=== PATIENT | female | born 1950 | race Caucasian/White ===

== ENCOUNTER → 2018-12-29 11:02 | Outpatient (POV) | payer BC, SELFPAY | PROVIDERS: Visit Provider Dermatology | DX: Z00.00 Encounter for general adult medical examination without abnormal findings (principal) ==

== ENCOUNTER → 2019-01-20 08:42 | Outpatient (CLI) | payer OTHER, SELFPAY ==
[2019-01-20 14:08] LABS: Basophils % 0.3 % (0.1-2.0); Eosinophils # 1.5 K/mm3 (0.0-0.4); Eosinophils % 16.3 % (0.1-12.0); Hematocrit 38.8 % (37.0-47.0); Lymphocytes # 2.9 K/mm3 (0.7-4.5); Lymphocytes % 30.2 % (10-50); Mean Corpuscular HGB Conc 33.6 g/dL (31.8-35.4); Mean Corpuscular Hemoglobin 28.9 pg (27.0-31.2); Mean Corpuscular Volume 86.2 fl (81-99); Mean Platelet Volume 8.7 fl (7.4-10.4); Monocytes # 0.3 K/mm3 (0.1-1.0); Monocytes % 3.3 % (1.7-9.3); Neutrophils # 4.7 K/mm3 (1.8-7.8); Neutrophils % 49.9 % (37.0-80.0); Platelet Count 256 K/mm3 (142-424); Red Blood Count 4.51 M/mm3 (4.20-5.40); Red Cell Distribution Width 13.2 % (11.5-17.5); White Blood Count 9.5 K/mm3 (4.8-10.8)
[2019-01-20 14:31] LABS: Alanine Aminotransferase 27 U/L (12-78); Albumin Level 3.5 gm/dL (3.4-5.0); Albumin/Globulin Ratio 0.9 (1.1-1.8); Alkaline Phosphatase 132 U/L (46-116); Anion Gap 17.4 mEq/L (5-15); Aspartate Amino Transferase 12 U/L (15-37); Bilirubin,Total 0.5 mg/dL (0.2-1.0); Blood Urea Nitrogen 14 mg/dL (7-18); Calcium 9.2 mg/dL (8.5-10.1); Carbon Dioxide 26 mmol/L (21.0-32.0); Chloride 103 mmol/L (98-107); Chol/HDL Ratio 4.8 (1-3.5); Cholesterol 201 mg/dL (140-200); Creatinine,Serum 0.99 mg/dL (0.55-1.02); Estimated Glomerular Filt Rate 56 ml/min (>60); GFR (African American) 68 ML/MIN (>60); Globulin 3.8 gm/dl (1.3-3.2); Glucose 113 mg/dL (74-106); HDL Cholesterol 42 mg/dL (29-89); LDL Cholesterol 134 mg/dL (0-130); Magnesium 1.7 mg/dL (1.4-2.2); Potassium 4.4 mmoL/L (3.5-5.1); Sodium 142 mmol/L (136-145); T4 (Thyroxine) 8.9 ug/dl (4.7-13.3); Thyroid Stimulating Hormone 1.93 uIU/ml (0.358-3.740); Total Protein,Serum 7.3 gm/dL (6.4-8.2); Triglycerides 124 mg/dL (30-200); VLDL Cholesterol 25 mg/dL (0-40)
[2019-01-23 10:15] LABS: QuantiFERON-TB Gold Plus Negative (Negative)
== END ==
PROVIDERS: Clinical Nurse Specialist Critical Care Medicine; PCP Physician Assistant; Visit Provider Dermatology
DX: L40.0 Psoriasis vulgaris (principal); Z79.899 Other long term (current) drug therapy; I47.1 Supraventricular tachycardia; R00.1 Bradycardia, unspecified; R07.89 Other chest pain; I10 Essential (primary) hypertension
CPT/HCPCS: 36415; 80053; 80061; 83735; 84436; 84443; 85025; 86480

== ENCOUNTER → 2019-04-06 12:58 | Outpatient (POV) | payer OTHER, SELFPAY | PROVIDERS: Visit Provider Dermatology | DX: Z00.00 Encounter for general adult medical examination without abnormal findings (principal) ==

== ENCOUNTER → 2019-10-26 10:39 | Outpatient (POV) | payer OTHER, SELFPAY | PROVIDERS: Visit Provider Dermatology | DX: Z00.00 Encounter for general adult medical examination without abnormal findings (principal) ==

== ENCOUNTER → 2020-10-17 10:50 | Outpatient (POV) | payer OTHER, SELFPAY | PROVIDERS: Visit Provider Dermatology | DX: Z00.00 Encounter for general adult medical examination without abnormal findings (principal) ==

== ENCOUNTER → 2021-10-30 15:12 | Outpatient (POV) | payer OTHER, SELFPAY | PROVIDERS: Visit Provider Dermatology | DX: Z00.00 Encounter for general adult medical examination without abnormal findings (principal) ==

== ENCOUNTER → 2022-07-05 11:15 | Outpatient (CLI) | payer MEDICARE, SELFPAY ==
[2022-07-05 18:32] LABS: Basophils # 0.1 K/mm3 (0-0.2); Basophils % 1.1 % (0.1-2.0); Eosinophils # 0.4 K/mm3 (0.0-0.4); Eosinophils % 5.6 % (0.1-12.0); Hematocrit 37.2 % (37.0-47.0); Lymphocytes # 1.3 K/mm3 (0.7-4.5); Lymphocytes % 19.9 % (10-50); Mean Corpuscular HGB Conc 32.4 g/dL (31.8-35.4); Mean Corpuscular Hemoglobin 29.5 pg (27.0-31.2); Mean Corpuscular Volume 91.1 fl (81-99); Monocytes # 0.4 K/mm3 (0.1-1.0); Monocytes % 5.5 % (1.7-9.3); Neutrophils # 4.6 K/mm3 (1.8-7.8); Platelet Count 313 K/mm3 (142-424); Red Blood Count 4.08 M/mm3 (4.20-5.40); Red Cell Distribution Width 13.9 % (11.5-17.5); White Blood Count 6.8 K/mm3 (4.8-10.8)
[2022-07-05 19:08] LABS: Alanine Aminotransferase 26 U/L (12-78); Aspartate Amino Transferase 27 U/L (14-36); Bilirubin,Total 0.3 mg/dl (0.2-1.3); Blood Urea Nitrogen 17 mg/dl (7-17); Estimated Glomerular Filt Rate 71 ml/min (>60); GFR (African American) 86 ML/MIN (>60); Potassium 4.7 mmoL/L (3.5-5.1)
[2022-07-05 19:29] LABS: Albumin/Globulin Ratio 1.3 (1.1-1.8); Alkaline Phosphatase 135 U/L (38-126); Anion Gap 12.7 mEq/L (5-15); Carbon Dioxide 26 mmol/L (22.0-30.0); Chloride 105 mmol/L (98-107); Globulin 3.1 g/dL (1.3-3.2); Glucose 114 mg/dl (74-100); Sodium 139 mmol/L (136-145); Total Protein,Serum 7.1 g/dl (6.3-8.2)
[2022-07-05 19:34] LABS: C-Reactive Protein 9.5 mg/L (0-4)
[2022-07-05 21:37] LABS: Erythrocyte Sedimentation Rate 69 mm/hr (0-30)
== END ==
PROVIDERS: PCP Family Medicine; Visit Provider Family Medicine
DX: D89.9 Disorder involving the immune mechanism, unspecified (principal); L40.50 Arthropathic psoriasis, unspecified; R79.89 Other specified abnormal findings of blood chemistry
CPT/HCPCS: 80053; 85025; 85651; 86140

== ENCOUNTER → 2022-07-26 07:56 | Outpatient (CLI) | payer MEDICARE, SELFPAY ==
[2022-07-26 18:25] LABS: Basophils % 0.6 % (0.1-2.0); Eosinophils # 0.3 K/mm3 (0.0-0.4); Eosinophils % 5.8 % (0.1-12.0); Hematocrit 35.9 % (37.0-47.0); Hemoglobin 11.9 g/dL (12.2-16.2); Lymphocytes # 1.5 K/mm3 (0.7-4.5); Mean Corpuscular HGB Conc 33.1 g/dL (31.8-35.4); Mean Corpuscular Hemoglobin 29.2 pg (27.0-31.2); Mean Corpuscular Volume 88.2 fl (81-99); Mean Platelet Volume 8.9 fl (7.4-10.4); Monocytes # 0.3 K/mm3 (0.1-1.0); Monocytes % 5.5 % (1.7-9.3); Neutrophils # 3.3 K/mm3 (1.8-7.8); Platelet Count 281 K/mm3 (142-424); Red Blood Count 4.07 M/mm3 (4.20-5.40); Red Cell Distribution Width 13.9 % (11.5-17.5); White Blood Count 5.5 K/mm3 (4.8-10.8)
[2022-07-26 18:52] LABS: Anion Gap 11.7 mEq/L (5-15); Blood Urea Nitrogen 14 mg/dl (7-17); Carbon Dioxide 29 mmol/L (22.0-30.0); Chloride 102 mmol/L (98-107); Estimated Glomerular Filt Rate 49 ml/min (>60); GFR (African American) 59 ML/MIN (>60); Glucose 168 mg/dl (74-100); Potassium 4.7 mmoL/L (3.5-5.1); Sodium 138 mmol/L (136-145)
== END ==
PROVIDERS: PCP Family Medicine; Visit Provider Family Medicine
DX: D64.9 Anemia, unspecified (principal); R82.90 Unspecified abnormal findings in urine; N28.9 Disorder of kidney and ureter, unspecified; B96.29 Other Escherichia coli [E. coli] as the cause of diseases classified elsewhere
CPT/HCPCS: 80048; 85025; 87086; 87088; 87186

== ENCOUNTER → 2022-08-13 20:09 | Outpatient (CLI) | payer MEDICARE, SELFPAY | PROVIDERS: PCP Family Medicine; Visit Provider Family Medicine | DX: G47.33 Obstructive sleep apnea (adult) (pediatric) (principal); R09.02 Hypoxemia; G47.61 Periodic limb movement disorder | CPT/HCPCS: 95810 ==

== ENCOUNTER 2024-03-23 11:09 | Outpatient (POV) | payer MEDICARE, SELFPAY | END 2024-03-23 23:59 | disposition home or self-care (01) | LOC: SC 11:10 | PROVIDERS: PCP Family Medicine; Visit Provider Dermatology | DX: Z00.00 Encounter for general adult medical examination without abnormal findings (principal) ==

== ENCOUNTER 2025-03-15 11:00 | Outpatient (CLI) | payer MEDICARE, SELFPAY ==
[2025-03-15 17:49] LABS: Basophils # 0.1 K/mm3 (0-0.2); Basophils % 0.9 % (0.1-2.0); Eosinophils # 0.3 Kmm3 (0.0-0.4); Eosinophils % 3.9 % (0.1-12.0); Hematocrit 36.3 % (37.0-47.0); Hemoglobin 11.9 g/dL (12.2-16.2); Lymphocytes # 1.7 K/mm3 (0.7-4.5); Lymphocytes % 24.2 % (10-50); Mean Corpuscular HGB Conc 32.8 g/dL (31.8-35.4); Mean Corpuscular Hemoglobin 29.2 pg (27.0-31.2); Mean Corpuscular Volume 89.2 fl (81-99); Mean Platelet Volume 11.2 fl (7.4-10.4); Monocytes # 0.6 K/mm3 (0.1-1.0); Monocytes % 8.7 % (1.7-9.3); Neutrophils # 4.3 K/mm3 (1.8-7.8); Nucleated Red Blood Cells # 0 10^3/uL; Nucleated Red Blood Cells % 0 %; Platelet Count 286 K/mm3 (142-424); Red Blood Count 4.07 M/mm3 (4.20-5.40); Red Cell Distribution Width 13.2 % (11.5-17.5); Red Cell Distribution Width-SD 42.8 fL; White Blood Count 6.9 K/mm3 (4.8-10.8)
[2025-03-15 18:23] LABS: Erythrocyte Sedimentation Rate 63 mm/hr (0-30)
[2025-03-15 18:43] LABS: 25-OH Vitamin D, Total 36.9 ng/mL (30-100)
[2025-03-15 18:56] LABS: HIV Combo NEGATIVE (Negative)
[2025-03-15 19:36] LABS: Alanine Aminotransferase 59 U/L (12-78); Albumin Level 4.3 g/dl (3.5-5.0); Albumin/Globulin Ratio 1.4 (1.1-1.8); Alkaline Phosphatase 108 U/L (38-126); Aspartate Amino Transferase 55 U/L (14-36); Bilirubin,Total 0.7 mg/dl (0.2-1.3); Blood Urea Nitrogen 15 mg/dl (7-17); Calcium 9.7 mg/dl (8.4-10.2); Carbon Dioxide 25 mmol/L (22.0-30.0); Chloride 104 mmol/L (98-107); Chol/HDL Ratio 5.2 (1-3.5); Cholesterol 223 mg/dl (140-200); Estimated Glomerular Filt Rate 54 ml/min (>60); GFR (African American) 66 ML/MIN (>60); Globulin 3.1 g/dL (1.3-3.2); Glucose 123 mg/dl (74-100); HDL Cholesterol 43 mg/dl (40-60); Sodium 139 mmol/L (136-145); Total Protein,Serum 7.4 g/dl (6.3-8.2); Triglycerides 234 mg/dl (30-150); VLDL Cholesterol 47 mg/dL (0-40)
[2025-03-15 19:42] LABS: C-Reactive Protein 13.3 mg/L (0-4)
[2025-03-15 20:07] LABS: Thyroid Stimulating Hormone 2.36 uIU/mL (0.465-4.68)
[2025-03-15 20:39] LABS: Hepatitis C Ab Qual. W/ RFX NEGATIVE (Negative)
[2025-03-15 21:04] LABS: Direct LDL Cholesterol 125.32 mg/dL (100-129)
[2025-03-15 21:46] LABS: Vitamin B12 > 1000 pg/mL (239-931)
--- OUTSIDE RECORDS SUMMARY | 2025-03-16 13:42 | XMS_ITS | Data Portability ---
Author Organization [facility] GALINDO Ceballos [facility] CLOSED Address [address] [facility] [address] [place] [address] Care Team Providers Care Kapok Machine Operator Name Role Phone [facility] Primary Care Provider Assessment Encounter Date Assessment Date Assessment LastModified by Organization Details LastModified Time 08/15/2022 08/15/2022 Medical management of UTI with urine culture. Encouraged to stay well hydrated. Urine for culture and sensitivity. We discussed need for timed and double voids. Not available 08/15/2022 19:29:43 12/19/2022 12/19/2022 We discussed UTI prevention with adequate hydration and timed and double voids. We discussed options of suppression including cranberry tablets and/or d-mannose. [email or web address] Not available 12/21/2022 16:06:38 Plan of Treatment Reminders Order Date Submit Date Provider Last Modified By Organization Details Last Modified Time Details Appointments None recorded. Lab urinalysis panel, auto 2022 023 [email or web address] [facility] With [address], [place], [address], 16:06:39 urinalysis panel, auto 2021 022 [email or web address] 14 [facility] With [address], [place], [address], 08:42:59 culture, urine 2021 022 HELGA [facility], [address] [place], [address], 11:17:23 culture, urine 2021 [email or web address] [facility], [address] [place], [address], 16:25:23 Referral None recorded. Procedures None recorded. Surgeries None recorded. Imaging None recorded. Medication Orders None recorded. Patient TargetsNo targets recorded. Patient Instructions Encounter Date Encounter Id Patient Instructions Last Modified By Organization Details Last Modified Time 08/15/2022 [id number] learning about healthy weight Not available 08/16/2022 08:42:59 learning about high blood pressure [email or web address] Not available 08/16/2022 08:42:59 12/19/2022 [id number] healthy together [email or web address] Not availa ble 12/21/2022 16:06:39 Reason for Referral None Reported. Results Created Date Observation Date Name Description Value Unit Range Abnormal Flag Note LastModifiedBy Organization Detail LastModifiedTime 08/15/2008/15/2022 URINE CULTU RE results Sour e: CCUR Colle cted: 08/15 18:00 Site: Zaira tonia : 08/15 19:29 URINE CULTU RE FINAL 08/17 13:06 08/17 COLON Y COUNT : 10,00 0 - 100,0 00 CFU/M L Three or more isola davin; mixed skin silver . Not Available [facility] [place], [address], 08/17/2022 13:06:52 08/15/20 22 08/15/2022 urina lysis panel , auto Unknown Analyte Clean Catch Not Available [facility] [place] [facility] With [address], [place], [address], 08/15/2022 13:48:53 08/15/20 22 08/15/2022 urina lysis panel , auto Unknown Analyte Yellow Not Available [facility] With [address], [place], [address], 08/15/2022 13:48:53 08/15/20 22 08/15/2022 urina lysis panel , auto Unknown Analyte Clear Not Available [facility] With [address] [place], [address], 08/15/2022 13:48:53 08/15/20 22 08/15/2022 urina lysis panel , auto Unknown Analyte 1.020 Not Available [facility] With [address] [place], [address], 08/15/2022 13:48:53 08/15/20 22 08/15/2022 urina lysis panel , auto Unknown Analyte 1.003- 1.035 Not Available [facility] With [address], [address], 08/15/2022 13:48:53 08/15/20 22 08/15/2022 urina lysis panel , auto Unknown Analyte 5.0 Not Available [facility] With [address], [address], 08/15/2022 13:48:53 08/15/20 22 08/15/2022 urina lysis panel , auto Unknown Analyte 5.0-8. 0 Not Available [facility] With [address] [place], [address], 08/15/2022 13:48:53 08/15/20 22 08/15/2022 urina lysis panel , auto Unknown Analyte 500 Miguel/ul (++) Not Available [facility] With [address] [place], [address], 08/15/2022 13:48:53 08/15/20 22 08/15/2022 urina lysis panel , auto Unknown Analyte Negati ve Not Available [facility] With [address], [place], [address], 08/15/2022 13:48:53 08/15/20 22 08/15/2022 urina lysis panel , auto Unknown Analyte Negati ve Not Available [facility] With [address], [place], [address], 08/15/2022 13:48:53 08/15/20 22 08/15/2022 urina lysis panel , auto Unknown Analyte Negati ve Not Available [facility] With [address], [place], [address], 08/15/2022 13:48:53 08/15/20 22 08/15/2022 urina lysis panel , auto Unknown Analyte Negati ve Not Available [facility] With [address], [place], [address], 08/15/2022 13:48:53 08/15/20 22 08/15/2022 urina lysis panel , auto Unknown Analyte Negati ve Not Available [facility] With [address], [place], [address], 08/15/2022 13:48:53 08/15/20 22 08/15/2022 urina lysis panel , auto Unknown Analyte Normal Not Available [facility] With [address] [place], [address], 08/15/2022 13:48:53 08/15/20 22 08/15/2022 urina lysis panel , auto Unknown Analyte Normal Not Available [facility] With [address] [place], [place], [address], 08/15/2022 13:48:53 08/15/20 22 08/15/2022 urina lysis panel , auto Unknown Analyte Negati ve Not Available [facility] With [address] [place], [address], 08/15/2022 13:48:53 08/15/20 22 08/15/2022 urina lysis panel , auto Unknown Analyte Negati ve Not Available [facility] With [address] [place], [address], 08/15/2022 13:48:53 08/15/20 22 08/15/2022 urina lysis panel , auto Unknown Analyte Normal Not Available [facility] With [address] [place], [address], 08/15/2022 13:48:53 08/15/20 22 08/15/2022 urina lysis panel , auto Unknown Analyte Normal 1 mg/dl Not Available [facility] With [address] [place], [address], 08/15/2022 13:48:53 08/15/20 22 08/15/2022 urina lysis panel , auto Unknown Analyte Negati ve Not Available [facility] With [address] [place], [address], 08/15/2022 13:48:53 08/15/20 22 08/15/2022 urina lysis panel , auto Unknown Analyte Negati ve Not Available [facility] With [address] [place], [address], 08/15/2022 13:48:53 08/15/20 22 08/15/2022 urina lysis panel , auto Unknown Analyte Negati ve Not Available [facility] With [address] [place], [place], [address], 08/15/2022 13:48:53 08/15/20 22 08/15/2022 urina lysis panel , auto Unknown Analyte Negati ve Not Available [facility] With [address] [place], [address], 08/15/2022 13:48:53 12/19/19 23 12/19/2022 urina lysis panel , auto Unknown Analyte Clean Catch Not Available [facility] With [address] [place], [address], 12/19/2022 13:22:22 12/19/19 23 12/19/2022 urina lysis panel , auto Unknown Analyte Yellow Not Available [facility] With [address] [place], [address], 12/19/2022 13:22:22 12/19/19 23 12/19/2022 urina lysis panel , auto Unknown Analyte Clear Not Available [facility] With [address] [place], [address], 12/19/2022 13:22:22 12/19/19 23 12/19/2022 urina lysis panel , auto Unknown Analyte 1.000 Not Available [facility] With [address] [place], [address], 12/19/2022 13:22:22 12/19/19 23 12/19/2022 urina lysis panel , auto Unknown Analyte 1.003- 1.035 Not Available [facility] With [address] [place], [address], 12/19/2022 13:22:22 12/19/19 23 12/19/2022 urina lysis panel , auto Unknown Analyte 7.0 Not Available [facility] With [address] [place], [place], [address], 12/19/2022 13:22:22 12/19/19 23 12/19/2022 urina lysis panel , auto Unknown Analyte 5.0-8. 0 Not Available [facility] With [address] [place], [address], 12/19/2022 13:22:22 12/19/19 23 12/19/2022 urina lysis panel , auto Unknown Analyte 500 Miguel/ul (++) Not Available [facility] With [address] [place], [place], [address], 12/19/2022 13:22:22 12/19/19 23 12/19/2022 urina lysis panel , auto Unknown Analyte Negati ve Not Available [facility] With [address] [place], [place], [address], 12/19/2022 13:22:22 12/19/19 23 12/19/2022 urina lysis panel , auto Unknown Analyte Negati ve Not Available [facility] With [address] [place], [address], 12/19/2022 13:22:22 12/19/19 23 12/19/2022 urina lysis panel , auto Unknown Analyte Negati ve Not Available [facility] With [address] [place], [address], 12/19/2022 13:22:22 12/19/19 23 12/19/2022 urina lysis panel , auto Unknown Analyte Negati ve Not Available [facility] With [address] [place], [place], [address], 12/19/2022 13:22:22 12/19/19 23 12/19/2022 urina lysis panel , auto Unknown Analyte Negati ve Not Available [facility] With [address] [place], [address], 12/19/2022 13:22:22 12/19/19 23 12/19/2022 urina lysis panel , auto Unknown Analyte Normal Not Available [facility] With [address] [place], [address], 12/19/2022 13:22:22 12/19/19 23 12/19/2022 urina lysis panel , auto Unknown Analyte Normal Not Available [facility] With [address] [place], [address], 12/19/2022 13:22:22 12/19/19 23 12/19/2022 urina lysis panel , auto Unknown Analyte Negati ve Not Available [facility] With [address] [place], [address], 12/19/2022 13:22:22 12/19/19 23 12/19/2022 urina lysis panel , auto Unknown Analyte Negati ve Not Available [facility] With [address] [place], [address], 12/19/2022 13:22:22 12/19/19 23 12/19/2022 urina lysis panel , auto Unknown Analyte Normal Not Available [facility] With [address] [place], [address], 12/19/2022 13:22:22 12/19/19 23 12/19/2022 urina lysis panel , auto Unknown Analyte Normal 1 mg/dl Not Available [facility] With [address] [place], [address], 12/19/2022 13:22:22 12/19/19 23 12/19/2022 urina lysis panel , auto Unknown Analyte Negati ve Not Available [facility] With [address] [place], [address], 12/19/2022 13:22:22 12/19/19 23 12/19/2022 urina lysis panel , auto Unknown Analyte Negati ve Not Available [facility] With [address] [place], [address], 12/19/2022 13:22:22 12/19/19 23 12/19/2022 urina lysis panel , auto Unknown Analyte Negati ve Not Available [facility] With [address], [place], [address], 12/19/2022 13:22:22 12/19/19 23 12/19/2022 urina lysis panel , auto Unknown Analyte Negati ve Not Available [facility] With [address] [place], [address], 12/19/2022 13:22:22 Result Notes None recorded. Procedures Surgical History Date Name Laterality Status Provider Name and Address Organization Details Recorded Time Hysterectomy completed Murelene Anshu [facility] 08/15/2022 13:46:22 Cholecystectomy completed Murelene Ansh[facility] 08/15/2022 13:46:31 Bilateral mastectomy completed Murelene Ansh[facility] 08/15/2022 13:47:34 Imaging Results None recorded. Procedure Notes None recorded. Medical Equipment None Reported. Allergies Allergen ID Allergen Name Allergen Category Reaction Reaction Severity Criticality Documentation Date Start Date Code Code System Note Provider Name and Address Organization Details Recorded Time 704236 Product containin g penicilli n (product) medicatio n Not available Not available Not available 08/15/2022 67115 8001 [facility] Ema Brasher [facility] 13:42:15 568803 Substance with sulfonami de structure and antibacte rial mechanism of action (substanc e) medicatio n Not available Not available Not available 08/15/2022 19158 8003 SNOMED Ema Brasher [facility] 13:42:24 Medications Name Sig Start Date Stop Date Status Note LastModified by Organization Details LastModified Time anastrozole active Not Available Not A vailable Not Available calcium active Not Available Not Avail able Not Available carvedilol active Not Available Not Av ailable Not Available montelukast active Not Available Not A vailable Not Available losartan active Not Available Not Avai lable Not Available allopurinol active Not Available Not A vailable Not Available Cosentyx active Not Available Not Avai lable Not Available Vitals Date Recorded Body height Body mass index (BMI) Body weight Provider Name and Address Organization Details Last Updated DateTime 08/15/2022 177.8 cm 31.9 kg/m2 004027.51 g Ema Brasher [facility] 08/15/2022 13:41:55 Date Recorded Body height Body mass index (BMI) Body weight Provider Name and Address Organization Details Last Updated DateTime 12/19/2022 177.8 cm 31.9 kg/m2 766019.51 vangie [facility] 12/19/2022 13:21:43 Social History Question Answer Notes LastModified by Organizat ion Details LastModified Time Tobacco Smoking Status Never Smoker Ema Brasher [facility] 08/15/2022 13:46:13 What Was The Date Of Your Most Recent Tobacco Screening? 08/15/2022 [email or web address] Information not available 08/15/2022 Sex: Unknown Functional Status None recorded. Mental Status None recorded. Family History Relationship Description Onset Age of this Age Resolved Age Notes LastModified by Organization Details LastModified Time Father Malignant neoplasm of prostate dai Not available 2021 13:45:45 Mother Kidney stone dai Not availab le 08/15/2022 13:46:01 Medical History Condition Response Arthritis Y Hypertension Y Sleep Apnea Y Gynecological HistoryNo gynecological history recorded. Obstetrics History GPAL:G 0 P 0 0 0 0 Past Encounters Encounter ID Performer Location Encounter Start Date Encounter Closed Date Diagnosis/Indication Diagnosis SNOMED-CT Code Diagnosis ICD10 Code Diagnosis Note [id number] SINGH MCDANIEL MD [facility] [address] [address] 08/15/2022 13:22:25 08/16/2022 16:50:56 Urinary tract infectious disease 70319367 N39.0 Hypertensive disorder 38 310928 I10 [id number] SINGH MCDANIEL MD [facility] [address] [place] [address],[place] [address] 12/19/2022 13:21:07 12/22/2022 04:05:06 Recurrent urinary tract infection 426406287 N39.0 Health Concerns Section Related Observation LastModified by Organization Detai ls LastModified Time None Recorded Concern Status LastModified by Organization Details LastModified Time None Recorded Advance Directives Directive None Recorded Payers Encounter Date Sequence Insurance Name Policy Number Policy Franks Covered Member ID Franks Member ID Guarantor Name 08/15/2022 1 [place] Sue J Bode [id number] 1 Sue J Laurence 12/19/2022 1 [place] Sue J Laurence [id number] Sue J Laurence 12/19/2022 2 [employer] (MEDICARE SUPPLEMENT) [id number] Sue J Laurence [id number] Sue J Laurence Notes Date Note Type Note Provider Name and Address Organization Details Recorded Time 08/15/2022 text/html 72-year-old female in the office for my initial evaluation and for discussion of recurrent UTI. On 07/26/2022 had a E. coli UTI treated with Ciprofloxacin. No history of recurrent UTIs. History of breast carcinoma status post bilateral mastectomy. She states she does not drink much throughout the day. Encouraged to stay well hydrated. No hesitancy. She has some urgency. Daytime frequency 2-3 times. Nocturia once nightly. No gross hematuria. No dysuria. SINGH MCDANIEL MD [address] [place] [address], [address], [facility] 08/15/2022 19:29:54 12/19/2022 text/html 72-year-old female in the office for follow-up evaluation of recurrent urinary infections. No recent UTIs. She reports normal daytime frequency with nocturia 0 to once nightly. No gross hematuria or dysuria. SINGH MCDANIEL MD [address] [place] [address], [address], [facility] 12/21/2022 16:06:57 OBGyn Episode No OBEpisode recorded.
== END 2025-03-15 23:59 | disposition home or self-care (01) ==
LOC: LAB.DROPOF 03-16 13:41
PROVIDERS: PCP Nurse Practitioner Family; Visit Provider Nurse Practitioner Family
DX: L40.50 Arthropathic psoriasis, unspecified (principal); I10 Essential (primary) hypertension; I49.9 Cardiac arrhythmia, unspecified; N28.9 Disorder of kidney and ureter, unspecified; M10.9 Gout, unspecified; C50.919 Malignant neoplasm of unspecified site of unspecified female breast; Z11.59 Encounter for screening for other viral diseases; E11.69 Type 2 diabetes mellitus with other specified complication
CPT/HCPCS: 80053; 80061; 82306; 82607; 83036; 84443; 85025; 85651; 86140; 86803; 87389

== ENCOUNTER 2025-06-24 10:15 | Outpatient (CLI) | payer MEDICARE, SELFPAY ==
--- OUTSIDE RECORDS SUMMARY | 2025-04-28 11:00 | XMS_ITS | Encounter Summary ---
Author Organization Healthcare Address [address] [place] [address] Care Team Providers Care Supervisor Intermediates Name Role Phone Charan Gong MD Unavailable [phone] Mckay Jordan MD Primary Care Provider Tere Sierra Fritz MD Unavailable [phone] Reason for Visit * Consultation (Routine) - Closed Specialty Diagnoses / Procedures Referred By Contbhupendra t Referred To Contact Dentist / Pain Medicine Diagnoses Obstructive sleep apnea (adult) (pediatric) Katie Ware MD [address] [facility] [address] [place] [address] Phone: tel: fax: January Martinez, DD [address] [address] Phone: tel: fax: Referral ID Status Reason Start Date Expiration Date Visits Re quested Visits Authorized [id number] Closed 03/18/2025 09/17/2026 1 1 Encounter Details Date Type Department Care Team (Late st Contact Info) Description 04/28/2025 11:00 AM EDT [facility] Room E214 [address] [place] [address] January Martinez DDS [address] [address] Prosper Higuera Obstructive sleep apnea (Primary Dx) Social History Tobacco Use Types Packs/Day Years Used Date Smoking Tobacco: Never Passive Smoke Exposure: Yes Smokeless Tobacco: Never Alcohol Use Standard Drinks/Week Comments Yes 0 (1 standard drink = 0.6 oz pur e alcohol) PHQ-2 Answer Date Recorded Patient Health Questionnaire-2 Score 0 04/12/2025 Comments No Sex and Gender Information Value Date Recorded Sex Assigned at Not on file Legal Sex Female 7:28 PM EDT Gender Identity Not on file Sexual Orientation Not on file documented as of this encounter Last Filed Vital Signs Vital Sign Reading Time Taken Comments Blood Pressure 137/73 04/28/2025 11:12 AM EDT Pulse 68 04/28/2025 11:12 AM EDT Temperature 36.1 C (96.9 F) 04/28/2025 11:12 AM EDT Respiratory Rate - - Oxygen Saturation 97% 04/28/2025 11:12 AM EDT Inhaled Oxygen Concentration - - Weight 109 kg (240 lb 11.9 oz) 04/28/2025 11:12 AM EDT Height 177.8 cm (5' 10 ) 04/28/2025 11:12 AM EDT Body Mass Index 34.54 04/28/2025 11:12 AM EDT documented in this encounter Miscellaneous Notes * Progress Notes - Prosper Higuera - 04/28/2025 11:00 AM EDT Patient Katie Ware MD [address] [place] [address]. Initial evaluation of a 75 y.o. female referred referred for the evaluation for the management of obstructive sleep apnea with oral appliance therapy. HISTORY OF CHIEF COMPLAINT: Ms. Sue Dang completed a home sleep study revealing an JUAQUIN average: 44 and a minimum oxygen saturation: 76%. These findings were consistent with severe obstructive sleep apnea. Patient reported snoring (ESS = 0). Patient cannot tolerate CPAP well however is interested in the management with oral appliance therapy mostly for travel purposes. Past Medical History[1] Family History[2] Surgical History[3] Medications Ordered Prior to Encounter[4] Allergies[5] CLINICAL EXAMINATION: Visit Vitals BP 137/73 Pulse 68 Temp (!) 36.1 ??C (96.9 ??F) Ht 1.778 m (5' 10 ) Wt 109 kg (240 lb 11.9 oz) SpO2 97% BMI 34.54 kg/m?? Cervical exam: Head and neck movements were not painful or restricted. Muscle and joint palpation: No tenderness to palpation of the temporomandibular joints or cervical and masticatory muscles.. Range of movement: Max comfortable opening 41 mm, max opening 43 mm (no deviation), left excursive 11 mm, right excursive 11 mm, protrusive 7 mm, vertical overlap 2 mm, horizontal overlap 2 mm. Intracapsular interferences: No TMJ sounds or interferences noted. Intraoral examination: No lymphadenopathy noted. No swelling, masses or lesions noted. Bilateral linea alba. Mallampati Score: Class 4. Bilateral scalloped tongue. Posterior tooth relationship: Class I Bilateral. Dentition: Unremarkable. Periodontal screening: No mobile teeth. Occlusal examination: Shimstock showed occlusal contacts between all the teeth and their antagonists. Stable occlusion noted. . RADIOGRAPHIC INTERPRETATION: Ms. Sue Dang provided a panoramic image taken by her dentist. Well corticated condyles with no signs of resorption. Absence of teeth #1, 16, 17 and 32. No gross caries. Vidales is largely non-diagnostic due to being a digital photo of a printed piece of paper. ASSESSMENT: severe obstructive sleep apnea (untreated). CONTRIBUTING FACTORS: TREATMENT RECOMMENDATIONS: We believe that the patient is a good candidate for a mandibular advancement device to be used for the management of obstructive sleep apnea in addition to weight loss. Advantages and disadvantages of the mandibular advancement device were discussed with the patient. Prior authorization has been requested from the patient's medical insurance provider. Clinical and radiographic findings were discussed with the patient and the patient's questions wereanswered. The patient will return for digital impressions and a protrusive bite record once this is received. If the patient tolerates the appliance, we will slowly advance the mandible; once we are at what webelieve is an appropriate advancement, we will suggest that a second sleep study be completed to measure the effectiveness of the appliance. [1] Past Medical History: Diagnosis Date Breast cancer Essential (primary) hypertension HTN (hypertension) GERD (gastroesophageal reflux disease) Gout Psoriatic arthritis (CMS/HCC) [2] Family History Problem Relation Name Age of Onset Skin cancer Mother Prostate cancer Father [3] Past Surgical History: Procedure Laterality Date BREAST BIOPSY Left CATARACT EXTRACTION, BILATERAL SECTION, CLASSIC CHOLECYSTECTOMY N/A Cholecystectomy from [facility] MASTECTOMY COMPLETE / SIMPLE Left MASTECTOMY COMPLETE / SIMPLE W/ SENTINEL NODE BIOPSY Right PARTIAL HYSTERECTOMY [4] Current Outpatient Medications on File Prior to Visit Medication Sig Dispense Refill allopurinol (Zyloprim) 100 MG tablet amLODIPine (Norvasc) 5 MG tablet Calcium Carbonate-Vit D-Min (RA Calcium 600/Vit D/Minerals) 600-200 MG-UNIT tablet Take by mouth 2 (two) times a day. carvedilol (Coreg) 25 MG tablet cyanocobalamin (Vitamin B-12) 250 MCG tablet Take 1 tablet (250 mcg) by mouth 1 (one) time each day. losartan (Cozaar) 25 MG tablet Take 1 tablet (25 mg) by mouth 1 (one) time each day. montelukast (Singulair) 10 MG tablet Secukinumab (Cosentyx Sensoready Pen) 150 MG/ML solution auto-injector Inject 300 mg under the skinevery 28 (twenty-eight) days. UNABLE TO FIND Med Name: Juanchoeddy. No current facility-administered medications on file prior to visit. [5] Allergies Allergen Reactions Cephalexin Hives Clarithromycin Hives Sulfa Drugs Rash and Itching Wound Dressing Adhesive Itching and Rash Neosporin Original [Neomycin-Bacitracin Zn-Polymyx] Rash Penicillin G Unknown - Patient states they do not know rxn details Cosigned by January Martinez DDS at 04/28/2025 1:38 PM EDT Associated attestation - January Martinez DDS - 04/28/2025 1:38 PM EDT I saw and evaluated the patient with the log hauler, and performed lion portions of the history and examination. I discussed the findings and the plan with the log hauler and conveyed the information to the patient. I agree with the log hauler's findings and plan as documented in the log hauler's note. I also evaluated the radiograph brought by the patient and I agree with the radiographic interpretation as written in the log hauler's note. documented in this encounter Plan of Treatment Upcoming Encounters Date Type Department Care Team (Late st Contact Info) Description 06/30/2025 11:15 AM EDT Office Visit [facility]facial Pain Clinic Orofacial Pain [facility] Room E214 [address] [place] [address] January Martinez, [facility] [address] [phone] Kika Gregorio 08/11/2025 10:30 AM EDT Office Visit [facility]facial Pain Clinic Orofacial Pain [facility] Room E214 [address] [place] [address] January Martinez, [facility] [address] [phone] Madhu Durham 03/28/2026 3:00 PM EDT Ovarian Cancer Screening [facility] [address] [facility] [place] [phone] 04/13/2026 1:00 PM EDT Office Visit [facility] [address] [facility], 2nd [place] [phone] April Loera, PA [address] [place] [address] Scheduled Orders Name Type Priority Associated Diagnoses Orde r Schedule CO ORAL DEVICE/APPLIANCE CUSFAB- IN PROCESS Dental Routine 1 Occurrences starting 04/28/2025 documented as of this encounter Visit Diagnoses Diagnosis Obstructive sleep apnea- Primary Obstructive sleep apnea (adult) (pediatric) documented in this encounter Additional Health Concerns Assessment Noted Time A fall risk assessment has been complete d for the patient 04/12/2025 9:35 AM EDT A Body Mass Index follow-up plan has been documented for the patient 04/28/2025 1:39 PM EDT documented as of this encounter Care Teams Supervisor Intermediates Relationship Specialty Start Date End Date Mckay Jordan MD [id number] [place] [address] PCP - General Family Medicine 10/01/22 Charan Gong MD [address] [phone] Consulting Physician Radiation Oncology 12/04/21 Sierra Molina MD [address] [phone] Consulting Physician Hematology and Oncology 04/06/24 documented as of this encounter
[2025-06-24 16:51] LABS: Hematocrit 35.2 % (37.0-47.0); Hemoglobin 11.2 g/dL (12.2-16.2); Immature Granulocytes % 0.3 %; Mean Corpuscular HGB Conc 31.8 g/dL (31.8-35.4); Mean Corpuscular Hemoglobin 28.9 pg (27.0-31.2); Mean Corpuscular Volume 90.7 fl (81-99); Nucleated Red Blood Cells % 0 %; Platelet Count 247 K/mm3 (142-424); Red Blood Count 3.88 M/mm3 (4.20-5.40); Red Cell Distribution Width-SD 43.6 fL; White Blood Count 7.1 K/mm3 (4.8-10.8)
[2025-06-24 18:59] LABS: Alanine Aminotransferase 43 U/L (12-78); Albumin Level 4.3 g/dl (3.5-5.0); Albumin/Globulin Ratio 1.7 (1.1-1.8); Alkaline Phosphatase 130 U/L (38-126); Anion Gap 12.5 mEq/L (5-15); Aspartate Amino Transferase 46 U/L (14-36); Bilirubin,Total 0.7 mg/dl (0.2-1.3); Blood Urea Nitrogen 16 mg/dl (7-17); Calcium 10.2 mg/dl (8.4-10.2); Carbon Dioxide 27 mmol/L (22.0-30.0); Chloride 102 mmol/L (98-107); Cholesterol 135 mg/dl (140-200); Creatinine,Serum 0.90 mg/dl (0.52-1.04); Estimated Glomerular Filt Rate 61 ml/min (>60); GFR (African American) 74 ML/MIN (>60); Globulin 2.6 g/dL (1.3-3.2); Glucose 157 mg/dl (74-100); HDL Cholesterol 39 mg/dl (40-60); Potassium 4.5 mmoL/L (3.5-5.1); Sodium 137 mmol/L (136-145); Total Protein,Serum 6.9 g/dl (6.3-8.2); Triglycerides 196 mg/dl (30-150)
--- OUTSIDE RECORDS SUMMARY | 2025-06-27 10:20 | XMS_ITS ---
Author Organization [facility] Address [address] [place] [address] Care Team Providers Care Blood Bank Manager Name Role Phone Mckay Jordan MD Primary Care Provider [phone] Rheumatology - External Fill Status:Enrolled (Active) Start date:09/29/2024 Enrollment date:09/29/2024 Enrollment reason:Identified as being on target medication Current support & services provided:Benefits Investigation, External Pharmacy Dispensing Linked medications:Risankizumab-rzaa (Active) Linked problems:Psoriasis (Active), Psoriatic arthritis of multiple joints (Active) Overview Patient will be mailed a PAP application for Jake on 10.26.24 Continued Care and Services Coordination
--- OUTSIDE RECORDS SUMMARY | 2025-06-27 10:20 | XMS_ITS | Encounter Summary ---
Author Organization [employer] ([place], [place], [place], [place]) Address [address] [place] [address] Care Team Providers Care Chaplaincy Name Role Phone Mckay Jordan MD Primary Care Provider [phone] Reason for Visit * Reason Comments Medication Refill Encounter Details Date Type Department Care Team (Late st Contact Info) Description 09/15/2024 Refill [facility] - [place] [address] [place] [address] Juliann Trent PA-C [address] [address] Hypertension, unspecified type Social History Tobacco Use Types Packs/Day Years Used Date Smoking Tobacco: Never Smokeless Tobacco: Never Alcohol Use Standard Drinks/Week Comments Never 0 (1 standard drink = 0.6 oz pur e alcohol) caffeine use Food Insecurity Answer Date Recorded Food run out past 12 months Not on file 11/17 Food did not last past 12 months Not on file 12/05/2023 Employment Answer Date Recorded Help finding and keeping a job Not on file 0 12/05/2023 Family and Community Support Answer Venkata e Recorded Help with Day to Day Activities Not on file 12/05/2023 Feeling Lonely or Isolated Not on file 12/05 Educational Attainment Answer Date Chicho rded Speak language other than Turkish at home Not on file 12/05/2023 Want help with school or training Not on file 12/05/2023 Substance Use Answer Date Recorded Used prescription meds for non-medical reasons N ot on file 12/05/2023 Used illegal drugs past 12 months Not on file 12/05/2023 Comments No Sex and Gender Information Value Date Recorded Sex Assigned at Not on file Legal Sex Female 3:50 PM CDT Gender Identity Not on file Sexual Orientation Not on file documented as of this encounter Plan of Treatment Not on file documented as of this encounter Visit Diagnoses Diagnosis Hypertension, unspecified type documented in this encounter Care Teams Chaplaincy Relationship Specialty Start Date End Date Mckay Jordan MD [address] [place], [place] [id number] PCP - General Family Medicine 01/15/23 documented as of this encounter
--- OUTSIDE RECORDS SUMMARY | 2025-06-27 10:20 | XMS_ITS | Encounter Summary ---
Author Organization Healthcare Address [address] [place] [address] Care Team Providers Care As400 Consultant Name Role Phone Charan Gong MD Unavailable [phone] Mckay Jordan MD Primary Care Provider Tere Sierra Fritz MD Unavailable [phone] Encounter Details Date Type Department Care Team (Latest Contact Info) Description 04/28/2025 Travel Social History Tobacco Use Types Packs/Day Years [...] as of this encounter Plan of Treatment Upcoming Encounters Date Type Department Care Team (Late st Contact Info) Description 06/30/2025 11:15 AM EDT Office Visit [facility]facial Pain Clinic O[facility]facial Pain Clinic [facility] Room E2 [address] [place] [address] January Martinez, DDS [address] [address] Kika Gregorio 08/11/2025 10:30 AM EDT Office Visit [facility] Room E214 [address] [place] [address] January Martinez, DDS [address] [facility] [address] [place] [address] Madhu Durham 03/28/2026 3:00 PM EDT Ovarian Cancer Screening [facility] [address] [facility] [place] [address] 04/13/2026 1:00 PM EDT Office Visit [facility] [address] [facility], 2nd [place] [address] April Loera, RAEANN [address] [facility] [address] [place] [address] documented as of this encounter Visit Diagnoses Not on filedocumented in this encounter Additional Health Concerns Assessment Noted Time A fall risk assessment has been complete d for the patient 04/12/2025 9:35 AM EDT A Body Mass Index follow-up plan has been documented for the patient 04/28/2025 1:39 PM EDT documented as of this encounter Care Teams As400 Consultant Relationship Specialty Start Date End Date Mckay Jordan MD [address] [facility] [address] [place] [address] PCP - General Family Medicine 10/01/22 Charan Gong MD [address] [facility] [address] [place] [address] Consulting Physician Radiation Oncology 12/04/21 Sierra Molina MD [address] [facility] Guillermina Roberts[facility]on [facility] [address] [place] [address] Consulting Physician Hematology and Oncology 04/06/24 documented as of this encounter
--- OUTSIDE RECORDS SUMMARY | 2025-06-27 10:20 | XMS_ITS | Encounter Summary ---
Author Organization Healthcare Address [address] [place] [address] Care Team Providers Care Frame Stripper And Crusher Name Role Phone Charan Gong MD Unavailable [phone] Mckay Jordan MD Primary Care Provider Tere Sierra Fritz MD Unavailable [phone] Reason for Referral * Consultation (Routine) - Closed Specialty Diagnoses / Procedures Referred By Contbhupendra mccarthy Referred To Contact Dentist / Pain Medicine Diagnoses Obstructive sleep apnea (adult) (pediatric) Katie Ware MD [address] [place] [address] Phone: tel: fax: January Martinez, DDS [address] [facility] [address] [place] [address] Phone: tel: fax: Referral ID Status Reason Start Date Expiration Date Visits Re quested Visits Authorized [id number] Closed 03/18/2025 09/17/2026 1 1 Encounter Details Date Type Department Care Team (Late st Contact Info) Description 03/18/2025 Community [facility] [address] [place] [address] Katie Ware MD [address] [place] [address] Obstructive sleep apnea (adult) (pediatric) (Primary Dx) Social History Tobacco Use Types Packs/Day Years Used Date Smoking Tobacco: Never Passive Smoke Exposure: Yes Smokeless Tobacco: Never Alcohol Use Standard Drinks/Week Comments Yes 0 (1 standard drink = 0.6 oz pur e alcohol) PHQ-2 Answer Date Recorded Patient Health Questionnaire-2 Score 0 04/07/2024 Comments No Sex and Gender Information Value Date Recorded Sex Assigned at Not on file Legal Sex Female 7:28 PM EDT Gender Identity Not on file Sexual Orientation Not on file documented as of this encounter Plan of Treatment Upcoming Encounters Date Type Department Care Team (Late st Contact Info) Description 06/30/2025 11:15 AM EDT Office Visit [facility] O[facility]facial Pain Clinic Orofacial Pain Clinic [facility] Room E214 [address] [place] [address] January Martinez, DDS [address] [address] Kika Gregorio 08/11/2025 10:30 AM EDT Office Visit [facility] Clinic O[facility]facial Pain Clinic [facility] Room E214 [address] [place] [address] January Martinez, S [address] [address] Madhu Durham 03/28/2026 3:00 PM EDT Ovarian Cancer Screening [facility] [address] [facility] [place] [phone] 04/13/2026 1:00 PM EDT Office Visit [facility] Breast Care Center [address] [facility], 2nd [place] [address] April Loera, RAEANN [address] [place] [address] Scheduled Referrals Name Type Priority Associated Diagnoses Order Schedule Ambulatory Referral to Orofacial Pain Outpatient Referral Routine Obstructive sleep apnea (adult) (pediatric) Expected: 03/18/2025 (Approximate), Expires: 09/18/2026 documented as of this encounter Visit Diagnoses Diagnosis Obstructive sleep apnea (adult) (pediatric)- Primary documented in this encounter Additional Health Concerns Assessment Noted Time A fall risk assessment has been complete d for the patient 10/11/2024 9:45 AM EST documented as of this encounter Care Teams Frame Stripper And Crusher Relationship Specialty Start Date End Date Mckay Jordan MD [address] [place] [address] PCP - General Family Medicine 10/01/22 Charan Gong MD [address] [place] [address] Consulting Physician Radiation Oncology 12/04/21 Sierra Molina MD [address] [facility] Guillerm[address] [place] [facility] [address] [place] [address] Consulting Physician Hematology and Oncology 04/06/24 documented as of this encounter
--- OUTSIDE RECORDS SUMMARY | 2025-06-27 10:20 | XMS_ITS | Clinical Summary ---
Author Organization [facility] Address [address] [place] [address] Care Team Providers Care Faculty Instructor Name Role Phone Mckay Jordan MD Primary Care Provider [phone]- [phone] Allergies Active Allergy Reactions Criticality Noted Date Comments Penicillins Rash Low 04/12/2024 Sulfa Antibiotics Rash Low 04/12/2024 Medications multivitamin with minerals (PRESERVISION AREDS PO) Take 1 tablet by mouth Daily. PreserVision AREDS 14,320 unit-226 mg-200 Active allopurinol (ZYLOPRIM) 100 MG tablet Take 1 tablet by mouth Daily. Active anastrozole (ARIMIDEX) 1 MG tablet Take 1 tablet by mouth Daily. Active hydrocortisone 2.5 % ointment Apply 1 Application topically to the appropriate area as directed 2 (Two) Times a Day As Needed. Active montelukast (SINGULAIR) 10 MG tablet Active losartan (COZAAR) 25 MG tablet Take 1 tablet by mouth Daily. Active carvedilol (COREG) 25 MG tablet Take 1 tablet by mouth 2 (Two) Times a Day With Meals. Active amLODIPine (NORVASC) 5 MG tablet Take 1 tablet by mouth Daily. Active cyanocobalamin (VITAMIN B-12) 250 MCG tablet Take 1 tablet by mouth Daily. Active Risankizumab-rz aa (Skyrizi Pen) 150 MG/ML solution auto-injectorIn dications:Psori atic arthritis of multiple joints Inject 1 Pen under the skin into the appropriate area as directed Every 12 (Twelve) Weeks. 1 mL 3 5 Active Active Problems Problem Noted Date Diagnosed Date Psoriasis 04/13/2024 Assessment & Plan (04/13/2024 1:56 PM EDT): dermatology dr Susan torre Minimal psoriasis on Cosentyx High risk medication use 04/13/2024 Assessment & Plan (04/13/2024 1:56 PM EDT): Cosentyx QTB negative 10/13/23 No signs of toxicity. Continue labs for monitoring We discussed biologic agents at length. Risks and alternatives were discussed at length and the option of no treatment was also given. We discussed risks including but not limited to infections which can be unusual, severe, and deadly. When possible, these agents should be stopped immediately if infections occur. Unusual infection such as TB and fungal infections can occur. There may be an increased risk of lymphoma with these agents. Other risks can include a multiple sclerosis-like illness and worsening of heart failure. Infusion or injection reactions which can be deadly have been reported. Studies on have not been done so should be avoided while on these agents. Reactivation of a deadly brain virus and hepatitis viruses have been reported. Worsening of COPD has been seen with orencia. Elevated lipids, elevation in liver functions, and dangerous changes in blood counts have been seen with certain agents. Regular monitoring will be required. Immunosuppression due to drug therapy 04/13/2024 Assessment & Plan (04/13/2024 1:56 PM EDT): Well-tolerated and effective Renal insufficiency 04/13/2024 Assessment & Plan (10/19/2024 3:53 PM EST): Assessment & Plan (04/13/2024 1:56 PM EDT): Has seen neurology but not Nephrology GFR in the 50s on labs 10/13/2023 Avoid further NSAIDs Follow-up with PCP for elevated blood pressure Psoriatic arthritis of multiple joints Assessment & Plan (04/13/2024 1:56 PM EDT): daughter Mirela with one son Philip; 3 grandchildren, 1 great grandchild, vacation [place] + hx dactylitis toe + psoriasis current: Cosentyx (2016) 300mg subq q 4wk([employer] assistance; start derm dr Susan Torre) prior MTX 2009 prior humira 7.14 biweekly prior enbrel 10; 11.13 hx histoplasmosis; prior otezla 3.16. low dz activity. Swollen joint count 0. Tender joint count 0. Good prognosis. improved on Cosentyx 300mg subq every 4 weeks through [employer] assistance Continue Cosentyx. [employer] application renewed September 2023 Medication well tolerated. No side effects. She stopped meloxicam due to renal insufficiency Avoid meloxicam and further NSAIDs for now with GFR in the 50s Recommend follow-up with PCP for hypertension as her blood pressure is elevated today 156/84 Labs ordered today for monitoring as below Follow-up in 6 months Immunizations Immunization Administration Dates Next Due COVID-19 (UNSPECIFIED) 02/02/2021,12/11/2020 Family History Medical History Relation Name Comments Arthritis Father Relation Name Status Comments Father Social History Tobacco Use Types Packs/Day Years Used Date Smoking Tobacco: Never Smokeless Tobacco: Never Tobacco Cessation:Counseling Given: Not Answered Alcohol Use Standard Drinks/Week Comments Never 0 (1 standard drink = 0.6 oz pur e alcohol) Comments Unknown Sex and Gender Information Value Date Recorded Sex Assigned at Not on file Legal Sex Female 12:25 PM EDT Gender Identity Not on file Sexual Orientation Not on file Last Filed Vital Signs Vital Sign Reading Time Taken Comments Blood Pressure 142/62 02/17/2025 1:52 PM EDT Pulse 86 02/17/2025 1:52 PM EDT Temperature 36.1 C (97 F) 02/17/2025 1:52 PM EDT Respiratory Rate - - Oxygen Saturation - - Inhaled Oxygen Concentration - - Weight 109 kg (240 lb 4.8 oz) 02/17/2025 1:52 P M EDT Height 177.8 cm (5' 10 ) 02/17/2025 1:52 PM EDT Body Mass Index 34.48 02/17/2025 1:52 PM EDT Plan of Treatment Upcoming Encounters Date Type Department Care Team (Late st Contact Info) Description 08/23/2025 11:30 AM EDT Office Visit [facility] RHEUMATOLOGY [address] [place] [address] Oh Martinez MD [address] [facility] [address] [place] [id number] Health Maintenance Due Date Last Done Comments Pneumococcal Vaccine 50+ (1 of 2 - PCV) 02/11/1971 TDAP/TD VACCINES (1 - Tdap) 02/11/1971 ZOSTER VACCINE (1 of 2) 02/11/1971 COLOGUARD 02/11/1997 COLON CANCER SCREENING 5 YEA R SIGMOIDOSCOPY 02/11/1997 COLONOSCOPY 02/11/1997 COLORECTAL CANCER SCREENING 02/11/1997 CT COLONOGRAPHY 02/11/1997 FECAL OCCULT BLOOD TEST 02/11/1997 FIT Testing (1 year) 02/11/1997 MAMMOGRAM 01/04/2022 01/04/2020, 12/18, 12/22/2018, Additional history exists ANNUAL WELLNESS VISIT 04/12/2024 HEPATITIS C SCREENING 04/12/2024 COVID-19 Vaccine (2023-2 5 season) 2024 02/02/2021, 01/11/2021, 12/11/2020 INFLUENZA VACCINE 08/17/2025 09/09/2018 DXA SCAN 10/07/2025 10/07/2023, 10/07/2023 Insurance MEDICARE ADVANTAGE PPO Care Teams Faculty Instructor Relationship Specialty Start Date End Date Mckay Jordan MD [address] [place] [address] [place] [address] PCP - General Family Medicine 04/13/24
--- OUTSIDE RECORDS SUMMARY | 2025-06-27 10:20 | XMS_ITS | Encounter Summary ---
Author Organization [employer] ([place], [place], [place], [place]) Address [address] [place] [address] Care Team Providers Care District Plant Superintendent Name Role Phone Mckay Jordan MD Primary Care Provider [phone]- [phone] Reason for Visit * Reason Comments Medication Refill Encounter Details Date Type Department Care Team (Late st Contact Info) Description 11/28/2024 Refill [facility] Cardiology [address] [address] Ramiro [place] MD [address] [place] [address] Social History Tobacco Use Types Packs/Day Years [...] Date Chicho rded Speak language other than Bengali at home Not on file 12/05/2023 Want [...] Diagnoses Not on filedocumented in this encounter Care Teams District Plant Superintendent Relationship Specialty Start Date End Date Mckay Jordan MD [address] [place], [place] [id number] PCP - General Family Medicine 01/15/23 documented as of this encounter
--- OUTSIDE RECORDS SUMMARY | 2025-06-27 10:20 | XMS_ITS | Encounter Summary ---
Author Organization [facility] Address [address] [place] [address] Care Team Providers Care Silo Worker Name Role Phone Mckay Jordan MD Primary Care Provider [phone]- [phone] Reason for Visit * Reason Onset Date Comments MED REFILL NEEDED 09/28/2024 Encounter Details Date Type Department Care Team (Late st Contact Info) Description 09/28/2024 Telephone [facility] RHEUMATOLOGY [address] [address] Oh Martinez MD [address] [address] MED REFILL NEEDED Social History Tobacco Use Types Packs/Day Years [...] on file documented as of this encounter Miscellaneous Notes * Telephone Encounter - Tere Barrios RegSched Rep - 09/28/2024 4:08 PM EST Caller: Sue Dang Relationship to patient: Self Best call back number: [phone] Patient is needing: PT CALLED AND SAID THE Secukinumab (Cosentyx UnoReady) 300 MG/2ML solution auto-injector NEEDS TO BE SENT TO [facility], IT WAS SUPPOSED TO BE APPROVED THROUGH THE END OF THE YEAR BUT IT'S ALREADY UP. documented in this encounter Plan of Treatment Upcoming Encounters Date Type Department Care Team (Late st Contact Info) Description 08/23/2025 11:30 AM EDT Office Visit [facility] RHEUMATOLOGY [address] [address] Oh Martinez MD [address] [address] documented as of this encounter Visit Diagnoses Not on filedocumented in this encounter Care Teams Silo Worker Relationship Specialty Start Date End Date Mckay Jordan MD [address] [place] [address] [place] [address] PCP - General Family Medicine 04/13/24 documented as of this encounter
--- OUTSIDE RECORDS SUMMARY | 2025-06-27 10:20 | XMS_ITS | Encounter Summary ---
Author Organization [facility] Address [address] [place] [address] Care Team Providers Care Floral Manager Name Role Phone Mckay Jordan MD Primary Care Provider [phone]- [phone] Encounter Details Date Type Department Care Team (Late Contact Info) Description 03/16/2025 Results Follow-Up [facility] RHEUMATOLOGY [address] [address] Oh Martinez MD [address] [place] [address] [phone] Social History Tobacco Use Types Packs/Day Years [...] Encounters Date Type Department Care Team (Late Contact Info) Description 08/23/2025 11:30 AM EDT Office Visit [facility] RHEUMATOLOGY [address] [address] Oh Martinez MD [address] [place] [phone] documented as of this encounter Visit Diagnoses Not on filedocumented in this encounter Care Teams Floral Manager Relationship Specialty Start Date End Date Mckay Jordan MD [address] [place] [address] [place] [address] PCP - General Family Medicine 04/13/24 documented as of this encounter
--- OUTSIDE RECORDS SUMMARY | 2025-06-27 10:20 | XMS_ITS | Encounter Summary ---
Author Organization [facility] Address [address] [place] [address] Care Team Providers Care Nail Setter Name Role Phone Charan Gong MD Unavailable [phone] Mckay Jordan MD Primary Care Provider Tere Sierra Fritz MD Unavailable [phone] Encounter Details Date Type Department Care Team (Late st Contact Info) Description 04/28/2025 [facility]phone [facility] Room E214 [address] [place] [address] Anna Calderon [address] [place] [address] Social History Tobacco Use Types Packs/Day Years [...] encounter Miscellaneous Notes * Telephone Encounter - Anna Calderon - 04/28/2025 12:11 PM EDT Financial counseling done at scheduling PA approved pt will owe $500 lab fee documented in this encounter Plan of Treatment Upcoming Encounters Date Type Department Care Team (Late st Contact Info) Description 06/30/2025 11:15 AM EDT Office Visit [facility]facial [facility] Clinic [facility] Room E214 [address] [place] [address] January Martinez, DDS [address] [address] Kika Gregorio 08/11/2025 10:30 AM EDT Office Visit [facility] Room E214 [address] [place] [address] January Martinez, [facility] [address] [phone] Madhu Durham 03/28/2026 3:00 PM EDT Ovarian Cancer Screening [facility] [address] [place] [phone] 04/13/2026 1:00 PM EDT Office Visit [facility] [address] [facility], 2nd [place] [address] April Loera PA [address] [place] [address] documented as of this encounter Visit Diagnoses Not on filedocumented in this encounter Additional Health Concerns Assessment Noted Time A fall risk assessment has been complete d for the patient 04/12/2025 9:35 AM EDT A Body Mass Index follow-up plan has been documented for the patient 04/28/2025 1:39 PM EDT documented as of this encounter Care Teams Nail Setter Relationship Specialty Start Date End Date Mckay Jordan MD [id number] [place] [address] PCP - General Family Medicine 10/01/22 Charan Gong MD [address] [facility] [address] [place] [phone] Consulting Physician Radiation Oncology 12/04/21 Sierra Molina MD [address] [facility] [address] [place] [phone] Consulting Physician Hematology and Oncology 04/06/24 documented as of this encounter
--- OUTSIDE RECORDS SUMMARY | 2025-06-27 10:20 | XMS_ITS | Referral Summary ---
Author Organization [employer] ([place], [place], [place], [place]) Address [address] [place] [address] Care Team Providers Care Sheep Herder Name Role Phone Mckay Jordan MD Primary Care Provider [phone]- [phone] Allergies Active Allergy Reactions Criticality Noted Date Comments Cephalexin Hives High 01/28/2020 Clarithromycin Hives High 01/28/2020 Penicillins Rash Low 01/18/2020 Other reaction(s): Unknown Sulfa (Sulfonamide Antibiotics) Rash,Itching Medium 01/18/2020 Medications allopurinoL (ZYLOPRIM) 100 MG tablet Take 1 tablet (100 mg total) by mouth in the morning. 01/07/2023 Active anastrozole (ARIMIDEX) 1 mg tablet Take 1 tablet (1 mg total) by mouth in the morning. 12/16/2022 Active carvediloL (COREG) 25 MG tablet Take 1 tablet (25 mg total) by mouth in the morning and 1 tablet (25 mg total) before bedtime. 01/07/2023 Active cholecalciferol, vitamin D3, 50 mcg (2,000 unit) Cap Take 1 capsule (2,000 Units total) by mouth. Active clobetasoL (TEMOVATE) 0.05 % cream Apply topically. 10/22/2022 Active montelukast (SINGULAIR) 10 mg tablet Take 1 tablet (10 mg total) by mouth in the morning. 01/07/2023 Active GaviLyte-G 236-22.74-6.74 -5.86 gram solution Take by mouth. 10/23/2022 Active calcium carbonate-vit D3-min (Calcium 600 + Minerals) 600 mg calcium- 200 unit Tab Take by mouth daily. Active secukinumab (Cosentyx Pen) 150 mg/mL PnIj Inject 300 mg subcutaneous ly. Active cyanocobalamin, vitamin B-12, 250 MCG tablet Take 1 tablet (250 mcg total) by mouth. Active amLODIPine (NORVASC) 5 MG tabletIndication s:Hypertension, unspecified type TAKE 1 TABLET EVERY DAY 90 tablet 3 11/24/2023 Active losartan (COZAAR) 25 MG tablet TAKE 1 TABLET EVERY MORNING 90 tablet 3 02/09/2024 Active Active Problems Problem Noted Date Diagnosed Date Sleep apnea Shortness of breath Palpitations Hypertension Gout Bradycardia Atrial tachycardia Allergies Social History Tobacco Use Types Packs/Day Years [...] Date Chicho rded Speak language other than Polish at home Not on file 12/05/2023 Want [...] Sign Reading Time Taken Comments Blood Pressure 120/58 04/10/2023 1:11 PM EDT Pulse 68 04/10/2023 1:11 PM EDT Temperature 37 C (98.6 F) 01/15/2023 12:37 PM EST Respiratory Rate 16 04/10/2023 1:11 PM EDT Oxygen Saturation 96% 04/10/2023 1:11 PM EDT Inhaled Oxygen Concentration - - Weight 108.9 kg (240 lb) 04/10/2023 1:11 PM EDT Height 177.8 cm (5' 10 ) 04/10/2023 1:11 PM EDT Body Mass Index 34.44 04/10/2023 1:11 PM EDT Plan of Treatment Not on file Insurance [employer] MEDICARE PPO Care Teams Sheep Herder Relationship Specialty Start Date End Date Mckay Jordan MD [address] [place] [id number] PCP - General Family Medicine 01/15/23
--- OUTSIDE RECORDS SUMMARY | 2025-06-27 10:20 | XMS_ITS | Clinical Summary ---
Author Organization [facility] Address [address] [place] [address] Care Team Providers Care Parking Garage Manager Name Role Phone Charan Gong MD Unavailable [phone] Mckay Jordan MD Primary Care Provider Tere Sierra Fritz MD Unavailable [phone] Allergies Active Allergy Reactions Criticality Noted Date Comments Cephalexin Hives High 01/28/2020 Clarithromycin Hives High 01/28/2020 Neomycin-Bacitracin Zn-Polymyx Rash Low 01/18/2020 Penicillin G Unknown - Patient st ates they do not know rxn details Low 01/18/2020 Sulfa Drugs Rash,Itching Medium 01/18/2020 Wound Dressing Adhesive Itching,Rash Medium 01/28/2020 Medications allopurinol (Zyloprim) 100 MG tablet 05/29/2021 Active carvedilol (Coreg) 25 MG tablet 05/29/2021 Active montelukast (Singulair) 10 MG tablet 05/29/2021 Active Secukinumab (Cosentyx Sensoready Pen) 150 MG/ML solution auto-injector Inject 300 mg under the skin every 28 (twenty-eig ht) days. Active cyanocobalamin (Vitamin B-12) 250 MCG tablet Take 1 tablet (250 mcg) by mouth 1 (one) time each day. Active losartan (Cozaar) 25 MG tablet Take 1 tablet (25 mg) by mouth 1 (one) time each day. Active amLODIPine (Norvasc) 5 MG tablet 01/24/2023 Active Calcium Carbonate-Vit D-Min (RA Calcium 600/Vit D/Minerals) 600-200 MG-UNIT tablet Take by mouth 2 (two) times a day. Active UNABLE TO FIND Med Name: [place]. Active Active Problems Problem Noted Date Diagnosed Date Encounter for monitoring adjuvant hormonal thera py 10/11/2024 Invasive ductal carcinoma of breast 01/28/2020 Cancer Staging:Pathologic stage from 01/25/2020:Stage IIB(pT2, pN1a, cM0, G2, ER+, [place]-, HER2-, Oncotype DX score: 21) - Unsigned Overview (04/02/2022): Malignant neoplasm of unspecified site of unspecified female breast Encounters Date Type Department Care Team Description 04/28/2025 11:00 AM EDT Office Visit [facility] Room [address] [address] January Martinez, Prosper Esposito Obstructive sleep apnea (Primary Dx) 04/28/2025 Telephone [facility] Room [facility] [place] [address] Anna Calderon 04/28/2025 Travel 04/12/2025 9:30 AM EDT Office Visit [address] [place] [address] April Loera PA Infiltrating ductal carcinoma of right breast (Primary Dx); Encounter for follow-up surveillance of breast cancer 04/12/2025 Travel 04/05/2025 Travel from Last 3 Months Family History Medical History Relation Name Comments Prostate cancer Father Skin cancer Mother Relation Name Status Comments Father Mother Social History Tobacco Use Types Packs/Day Years Used Date Smoking Tobacco: Never Passive Smoke Exposure: Yes Smokeless Tobacco: Never Tobacco Cessation:Counseling Given: Not Answered Alcohol Use Standard Drinks/Week Comments Yes 0 [...] F) 04/28/2025 11:12 AM EDT Respiratory Rate 16 04/12/2025 9:27 AM EDT Oxygen Saturation 97% 04/28/2025 11:12 AM EDT Inhaled Oxygen Concentration - - Weight 109 kg (240 lb 11.9 oz) 04/28/2025 11:12 AM EDT Height 177.8 cm (5' 10 ) 04/28/2025 11:12 AM EDT Body Mass Index 34.54 04/28/2025 11:12 AM EDT Plan of Treatment Upcoming Encounters Date Type Department Care Team (Late st Contact Info) Description 06/30/2025 11:15 AM EDT Office Visit [facility] Room E2 [address] [place] [address] January Martinez, [facility] [address] [address] Kika Gregorio 08/11/2025 10:30 AM EDT Office Visit [facility] Room E214 [address] [place] [address] January Martinez [facility] [address] [address] Madhu Durham 03/28/2026 3:00 PM EDT Ovarian Cancer Screening [facility] [address] [facility] [place] [phone] 04/13/2026 1:00 PM EDT Office Visit [facility] [address] [facility], 2nd [place] [address] April Loera, RAEANN [address] [address] Health Maintenance Due Date Last Done Comments Dental Oral Exam 1950 Dental Prophylaxis 1950 Dental X-Ray: Bitewings 1950 Dental X-Ray: Full Mouth 1950 [facility]-Hepatitis C Screening 1950 [facility]-Medicare Annual Wellness (AWV) 1950 [facility]-/Child/Adol SDOH Screenings 1950 [facility]- SDOH Screenings 02/11/1970 [facility]-Adult SDOH Screenings 02/11/1970 [facility]-DTaP,Tdap,and Td Vaccine s (1 - Tdap) 02/11/1971 [facility]-Pneumococcal Vaccine: 50 + Years (1 of 2 - PCV) 02/11/1971 [facility]-Zoster Vaccines (1 of 2) 02/11/1971 CT Colonography 02/11/1997 Colonoscopy 02/11/1997 FIT-DNA 02/11/1997 FIT 02/11/1997 FOBT 02/11/1997 Sigmoidoscopy 02/11/1997 [facility]-Colorectal Cancer Screening 02/11/1997 [facility]-RSV Vaccine: 60+ Years o r (1 - Risk 60-74 years 1-dose series) 2012 [id number] Vaccine (4 - season) 2024 02/02/2021, 01/11/2021, 12/11/2020 [facility]-Influenza Vaccine (#1) 2025 09/09/2018 [facility]-Bone Density Scan 10/07/2025 10/07/2023 [facility]-Depression Screening 04/12/2026 04/12/2025 [facility]-Obesity Intervention Completed 04/28/2025 HPV Vaccines Aged Out No longer eligi ble based on patient's age to complete this topic [facility]-HIB Vaccines Aged Out No longer e ligible based on patient's age to complete this topic [facility]-Hepatitis A Vaccines Aged Out No longer eligible based on patient's age to complete this topic [facility]-IPV Vaccines Aged Out No longer e ligible based on patient's age to complete this topic [facility]-Rotavirus Vaccines Aged Out No lo nger eligible based on patient's age to complete this topic Procedures Procedure Name Priority Date/Time Associated Diagnosis Comments DEXA BONE DENSITY Routine 10/07/2023 9:4 0 AM EST Infiltrating ductal carcinoma of right breast (CMS/HCC) from Last 3 Months or Most Recently Relevant to Health Maintenance Results * Dexa Bone Density (10/07/2023 9:40 AM EST) Anatomical Region Laterality Modality L-spine Radiographic Rand ging Narrative 10/12/2023 6:14 PM EST [facility] - Nephrology, Bone & Mineral Metabolism [address] [place] [address] DXA Bone Densitometry Report: [DAY/DATE] BMD test performed using the [employer] iDUjogo DXA System (analysis version: 14.10) manufactured by [employer]. CLINICAL INFORMATION: PATIENT NAME: Sue Dang PATIENT AGE: 73 y.o. LEGAL SEX: female RADIOGRAPHIC VIEWS: Sites scanned: AP Spine, HIP Right , and HIP Left COMPARISON STUDY: 2019. FINDINGS: Based on WHO criteria (post-menopausal female) the diagnosis is Normal based on lowest T score. The BMD is stable compared to previous results. TREATMENT RECOMMENDATIONS: Treatment decisions should be based on clinical indications. Suggest general measures to optimize calcium and vitamin D status, fall prevention measures and reduce fracture risk. Sierra Molina MD IMG DXA PROCEDURES Final Resu lt from Last 3 Months or Most Recently Relevant to Health Maintenance Insurance [facility] MEDICARE Care Teams Parking Garage Manager Relationship Specialty Start Date End Date Mckay Jordan MD [address] [address] PCP - General Family Medicine 10/01/22 Charan Gong MD [address] [address] Consulting Physician Radiation Oncology 12/04/21 Sierra Molina MD 800 [facility] Guillermina Hoover [address] [phone] Consulting Physician Hematology and Oncology 04/06/24
--- OUTSIDE RECORDS SUMMARY | 2025-06-27 10:20 | XMS_ITS | Clinical Summary ---
Author Organization [employer] ([place], [place], [place], [place]) Address [address] [place] [address] Care Team Providers Care Duster Tender Name Role Phone Mckay Jordan MD Primary Care Provider [phone] Allergies Active Allergy Reactions Criticality Noted Date [...] Palpitations Hypertension Gout Bradycardia Atrial tachycardia Allergies Family History Medical History Relation Name Comments Heart attack Brother Heart disease Brother Prostate cancer Father Heart disease Mother Heart disease Other Relation Name Status Comments Brother Father Mother Other Social History Tobacco Use Types Packs/Day Years [...] Date Chicho rded Speak language other than Estonian at home Not on file 12/05/2023 Want [...] 04/10/2023 1:11 PM EDT Plan of Treatment Health Maintenance Due Date Last Done Comments Medicare Initial AWV G0438 CT Colonography 1950 Colonoscopy 1950 Colorectal Cancer Screening 1950 DXA SCAN 1950 FOBT/FIT 1950 Fit-DNA (Cologuard) 1950 Sigmoidoscopy 1950 Depression Screening (12+) 1964 Hepatitis C Screening 02/11/1970 DTAP/TDAP/TD VACCINES (1 - Tdap) 02/11/1971 Breast Cancer Screening 1992 Pneumococcal 50+ years (1 of 1 - PCV) 02/11/2002 Shingles Vaccine (Zoster) (1 of 2) 02/11/2002 Tobacco Cessation Counseling and Screening (12+) 04/10/2024 04/10/2023 COVID-19 VACCINE (3 - 2023- season) 2024, 01/11/2021 Falls Risk Screening 11/17/2024 Influenza Vaccine (#1) 2025 Respiratory Syncytial Virus (RSV) Adult or (1 - 1-dose 75+ series) 02/11/2027 Insurance [facility] MEDICARE PPO Care Teams Duster Tender Relationship Specialty Start Date End Date Mckay Jordan MD [address] [place] [address] PCP - General Family Medicine 01/15/23
== END 2025-06-24 23:59 | disposition home or self-care (01) ==
LOC: LAB.DROPOF 06-27 10:16
PROVIDERS: PCP Nurse Practitioner Family; Visit Provider Nurse Practitioner Family
DX: E11.69 Type 2 diabetes mellitus with other specified complication (principal); E66.9 Obesity, unspecified; I10 Essential (primary) hypertension; E78.5 Hyperlipidemia, unspecified
CPT/HCPCS: 80053; 80061; 82043; 82570; 85025

== ENCOUNTER 2025-09-30 09:40 | Outpatient (CLI) | payer MEDICARE, SELFPAY ==
--- OUTSIDE RECORDS SUMMARY | 2025-08-11 09:30 | XMS_ITS | Encounter Summary ---
Author Organization Healthcare Address [address] [place] [address] Care Team Providers Care Emergency Department Aide Name Role Phone Charan Gong MD Unavailable [phone] Mckay Jordan MD Primary Care Provider Tere Sierra Fritz MD Unavailable [phone] Encounter Details Date Type Department Care Team (Late st Contact Info) Description 08/11/2025 10:30 AM EDT [facility] Room E2 [address] [place] [address] January Martinez, S [address] [address] Madhu Durham Obstructive sleep apnea (Primary Dx) Social History [...] Sign Reading Time Taken Comments Blood Pressure 147/73 08/11/2025 10:19 AM EDT Pulse 69 08/11/2025 10:19 AM EDT Temperature 35.8 C (96.5 F) 08/11/2025 10:19 AM EDT Respiratory Rate - - Oxygen Saturation 94% 08/11/2025 10:19 AM EDT Inhaled Oxygen Concentration - - Weight 110 kg (243 lb 2.7 oz) 08/11/2025 10:19 A M EDT Height 177.8 cm (5' 10 ) 08/11/2025 10:19 AM EDT Body Mass Index 34.89 08/11/2025 10:19 AM EDT documented in this encounter Miscellaneous Notes * Progress Notes - Madhu Durham - 08/11/2025 10:30 AM EDT Patient returned to the clinic the delivery of Panthera classic appliance. Examination: Vitals: 08/11/25 1019 BP: (!) 147/73 Pulse: 69 Temp: (!) 35.8 ??C (96.5 ??F) SpO2: 94% Procedure: Panthera classic appliance was inserted. It was tried for 10 minutes, no pain or discomfort was reported. Arm size #30. AM mineral technologist registration was taken to control the bite. It was tried and felt comfortable. Patient was instructed on how to use it. Panthera classic appliance was delivered along with the AM mineral technologist and written instructions. Assessment: severe obstructive sleep apnea. Plan: Instructions of nighttime use and care were given to the patient. Proof of delivery and Medicare standard requirements was signed by the patient, and a paper copy was provided to the patient. See attachments. Patient to return to [facility] for follow up appointment. Cosigned by January Martinez DDS at 08/11/2025 12:00 PM EDT Associated attestation - January Martinez DDS - 08/11/2025 12:00 PM EDT I saw and evaluated the patient, I discussed the case with the manager student services and agree with the notes as documented below. documented in this encounter Plan of Treatment Upcoming Encounters Date Type Department Care Team (Late st Contact Info) Description 10/06/2025 11:15 AM EST Office Visit [place] [facility] Room E214 [address] [place] [address] January Martinez, DDS [address] [facility] [address] [place] [address] 03/28/2026 3:00 PM EDT Ovarian Cancer Screening [place] [facility] [address] [facility] [place] [address] 04/21/2026 1:00 PM EDT Office Visit [facility] [address] [facility] [place] [address] April Loera PA [address] [facility] [address] [place] [address] documented as of this encounter Visit Diagnoses Diagnosis Obstructive sleep apnea- Primary Obstructive sleep apnea (adult) (pediatric) documented in this encounter Additional Health Concerns Assessment Noted Time A fall risk assessment has been complete d for the patient 04/12/2025 9:35 AM EDT A Body Mass Index follow-up plan has been documented for the patient 08/11/2025 12:01 PM EDT documented as of this encounter Care Teams Emergency Department Aide Relationship Specialty Start Date End Date Mckay Jordan MD [address] [facility] [address] [place] [address] PCP - General Family Medicine 10/01/22 Charan Gong MD [address] [facility] [address] [place] [address] Consulting Physician Radiation Oncology 12/04/21 Sierra Molina MD [address] [facility] Guillermina Robertsrickson [facility] Andrea [address] [place] [phone] Consulting Physician Hematology and Oncology 04/06/24 documented as of this encounter
--- OUTSIDE RECORDS SUMMARY | 2025-08-23 10:30 | XMS_ITS | Encounter Summary ---
Author Organization [facility] Address [address] [place] [address] Care Team Providers Care Fountain Vending Mechanic Name Role Phone Mckay Jordan MD Primary Care Provider [phone] Reason for Visit * Reason Comments Psoriatic Arthritis Encounter Details Date Type Department Care Team (Late st Contact Info) Description 08/23/2025 11:30 AM EDT Office Visit [facility] [address] [address] Oh Martinez MD [address] [address] Psoriatic arthritis of multiple joints (Primary Dx); High risk medication use Social History Tobacco Use Types Packs/Day Years [...] Sign Reading Time Taken Comments Blood Pressure 140/68 08/23/2025 11:21 AM EDT Pulse 73 08/23/2025 11:21 AM EDT Temperature 36.2 C (97.1 F) 08/23/2025 11:21 AM EDT Respiratory Rate - - Oxygen Saturation - - Inhaled Oxygen Concentration - - Weight 109 kg (241 lb) 08/23/2025 11:21 AM EDT Height 177.8 cm (5' 10 ) 08/23/2025 11:21 AM EDT Body Mass Index 34.58 08/23/2025 11:21 AM EDT documented in this encounter Patient Instructions * Attachments The following attachments cannot be sent through Care Everywhere. * Risankizumab Injection (Maltese) documented in this encounter Progress Notes * Oh Martinez MD - 08/23/2025 11:30 AM EDT Images from the original note were not included. Office Follow Up Date: 08/23/2025 Patient Name: Sue Dang Date of : 1950 Referring Physician: No ref. provider found Chief Complaint: Chief Complaint Patient presents with Psoriatic Arthritis History of Present Illness: Sue Dang is a 75 y.o. female who is here today for follow up on psoriatic arthritis and psoriasis. She started on Skyrizi through [employer] assistance program January 2025. Well-tolerated. Psoriasis is overall improving and presently minimal on the Skyrizi. No side effect. No infection. No present swollen or painful joints She did have a flareup in the interim left hand MCP joint and left foot. This resolved with steroids through her PCP History of Present Illness Subjective Review of Systems: Review of Systems Constitutional: Negative for chills, fatigue, fever and unexpected weight loss. HENT: Negative for mouth sores, sinus pressure and sore throat. Eyes: Negative for pain and redness. Respiratory: Negative for cough and shortness of breath. Cardiovascular: Negative for chest pain. Gastrointestinal: Negative for abdominal pain, blood in stool, diarrhea, nausea, vomiting and GERD. Endocrine: Negative for polydipsia and polyuria. Genitourinary: Negative for dysuria, genital sores and hematuria. Musculoskeletal: Negative for arthralgias, back pain, joint swelling, myalgias, neck pain and neck stiffness. Skin: Negative for rash and bruise. Neurological: Negative for seizures, weakness, numbness and memory problem. Hematological: Negative for adenopathy. Does not bruise/bleed easily. Psychiatric/Behavioral: Negative for depressed mood. The patient is not nervous/anxious. Past Medical History: Past Medical History: Diagnosis Date Angioedema of lips FRrom MALGORZATA inhibitor 2013 Cancer of breast High risk medication use Hx of degenerative disc disease Psoriasis Psoriatic arthritis RLS (restless legs syndrome) Sleep apnea Past Surgical History: Past Surgical History: Procedure Laterality Date CATARACT EXTRACTION Bilateral left 03/27/18 right 03/30/18 MASTECTOMY Family History: Family History Problem Relation Age of Onset Arthritis Father Social History: Social History Socioeconomic History Marital status: Single Tobacco Use Smoking status: Never Smokeless tobacco: Never Vaping Use Vaping status: Never Used Substance and Sexual Activity Alcohol use: Never Drug use: Never Medications: Current Outpatient Medications: allopurinol (ZYLOPRIM) 100 MG tablet, Take 1 tablet by mouth Daily., Disp: , Rfl: amLODIPine (NORVASC) 5 MG tablet, Take 1 tablet by mouth Daily., Disp: , Rfl: carvedilol (COREG) 25 MG tablet, Take 1 tablet by mouth 2 (Two) Times a Day With Meals., Disp: , Rfl: cyanocobalamin (VITAMIN B-12) 250 MCG tablet, Take 1 tablet by mouth Daily., Disp: , Rfl: ferrous sulfate 324 (65 Fe) MG tablet delayed-release EC tablet, Take 1 tablet by mouth Daily With Breakfast., Disp: , Rfl: losartan (COZAAR) 25 MG tablet, Take 1 tablet by mouth Daily., Disp: , Rfl: metFORMIN ER (GLUCOPHAGE-XR) 500 MG 24 hr tablet, Take 1 tablet by mouth Daily With Breakfast., Disp: , Rfl: montelukast (SINGULAIR) 10 MG tablet, , Disp: , Rfl: multivitamin with minerals (PRESERVISION AREDS PO), Take 1 tablet by mouth Daily. PreserVision AREDS 14,320 unit-226 mg-200, Disp: , Rfl: Risankizumab-rzaa (Skyrizi Pen) 150 MG/ML solution auto-injector, Inject 1 Pen under the skin into the appropriate area as directed Every 12 (Twelve) Weeks., Disp: 1 mL, Rfl: 3 rosuvastatin (CRESTOR) 5 MG tablet, Take 1 tablet by mouth Daily., Disp: , Rfl: Allergies: Allergies Allergen Reactions Penicillins Rash Sulfa Antibiotics Rash Objective Vital Signs: Vitals: 08/23/25 1121 BP: 140/68 BP Location: Left arm Patient Position: Sitting Cuff Size: Large Adult Pulse: 73 Temp: 97.1 ??F (36.2 ??C) Weight: 109 kg (241 lb) Height: 177.8 cm (70 ) PainSc: 3 Body mass index is 34.58 kg/m??. Physical Exam: Physical Exam MUSCULOSKELETAL: No peripheral synovitis No dactylitis. No pitting of the nails. bony change without pain left fourth finger PIP joint with boutonniere deformity Complete joint exam was performed including the MCPs, PIPs, DIPs of the hands, wrists, elbows, shoulders, hips, knees and ankles. No soft tissue swelling or tenderness is present except as above. General: The patient is well-developed and well nourished. Cooperative, alert and oriented. Affect is normal. Hydration appears normal. HEENT: Normocephalic and atraumatic. Lids and conjunctiva are normal. Pupils are equal and sclera are clear. Oropharynx is clear NECK neck is supple without adenopathy, masses or thyromegaly. CARDIOVASCULAR: Regular rate and rhythm. No murmurs, rubs or gallops LUNGS: Effort is normal. Lungs are clear bilateral ABDOMEN: Not examined EXTREMITIES: Peripheral pulses are intact. No clubbing. SKIN: Minimal psoriasiform plaque left palm. No subcutaneous nodules. No digital ulcers. No sclerodactyly. NEUROLOGIC: Gait is normal. Strength testing is normal. No focal neurologic deficits Results Review: Labs: Lab Results Component Value Date GLUCOSE 129 (H) 10/19/2024 BUN 12 10/19/2024 CREATININE 0.95 10/19/2024 EGFR 63.8 10/19/2024 BCR 12.6 10/19/2024 K 4.0 10/19/2024 CO2 28.9 10/19/2024 CALCIUM 10.8 (H) 10/19/2024 ALBUMIN 4.5 10/19/2024 BILITOT 0.6 10/19/2024 AST 54 (H) 10/19/2024 ALT 57 (H) 10/19/2024 Lab Results Component Value Date WBC 6.94 10/19/2024 HGB 12.8 10/19/2024 HCT 37.3 10/19/2024 MCV 88.6 10/19/2024 PLT 298 10/19/2024 Lab Results Component Value Date SEDRATE 34 (H) 10/19/2024 Lab Results Component Value Date CRP 1.72 (H) 10/19/2024 Lab Results Component Value Date QUANTIFERO Incubation performed. 10/19/2024 QUANTIFERO Comment 10/19/2024 QUANTITB1 0.00 10/19/2024 QUANTITB2 0.00 10/19/2024 QUANTIFERN 0.00 10/19/2024 QUANTIFERM >10.00 10/19/2024 QUANTITBGLDP Negative 10/19/2024 No results found for: RF No results found for: HEPBSAG , HEPAIGM , HEPBIGMCORE , HEPCVIRUSABY Procedures Assessment / Plan -Psoriatic arthritis daughter Mirela with one son Philip; 3 grandchildren, 1 great grandchild, vacation [place] + hx dactylitis toe + psoriasis current: Skyrizi 02/08 ([employer] assistance) Prior Cosentyx (2015-11/09 lost efficacy) 300mg subq q 4wk([employer] assistance; start derm dr Araya) prior MTX 2008 prior humira 7.14 biweekly prior enbrel 08/25; 11.13 hx histoplasmosis; prior otezla 3.16. Low improved disease activity since starting Skyrizi 02/08. Swollen joint count 0. Tender joint count 0. Minimal psoriasis palm She had to delay her latest Skyrizi injection by 6 days due to upper respiratory infection now resolved. This seemed to flare her psoriasis on her palm slightly. Medication well tolerated and effective. No side effects. Avoid meloxicam and further NSAIDs for now with GFR in the 50s Labs ordered today for monitoring as below including update Q TB which she will do with PCP in September Follow-up in 6 months -Psoriasis dermatology Dr Susan elise Minimal disease activity from psoriasis; greatly improved on Skyrizi -High risk medication use -Immunosuppression due to drug therapy Skyrizi QTB negative 10/19/2024 Medication well-tolerated and effective -Labs for monitoring every 6 months. No signs of toxicity We discussed biologic agents at length. Risks and alternatives were discussed at length and the option of no treatment was also given. We discussed risks including but not limited to infections whichcan be unusual, severe, and deadly. When possible, [...] certain agents. Regular monitoring will be required. - Renal insufficiency GFR in the 50s on labs 10/13/2023 Avoid further NSAIDs - At risk for osteoporosis Bone density scan 10/09 reviewed and normal Assessment & Plan 1. Psoriatic arthritis of multiple joints 2. High risk medication use Orders Placed This Encounter Procedures CBC Auto Differential C-reactive Protein Comprehensive Metabolic Panel Sedimentation Rate QuantiFERON-TB Gold Plus (Li-Hep) New Medications Ordered This Visit Medications Risankizumab-rzaa (Skyrizi Pen) 150 MG/ML solution auto-injector Sig: Inject 1 Pen under the skin into the appropriate area as directed Every 12 (Twelve) Weeks. Dispense: 1 mL Refill: 3 Maintenance dose. Follow Up: Return in about 6 months (around 02/21/2026). Discussed plan of care in detail with the patient today. Patient verbalized understanding and agrees. I confirm accuracy of unchanged data/findings which have been carried forward from previous visit. I have updated appropriately those that have changed. Oh Martinez MD [facility] [place] documented in this encounter Plan of Treatment Upcoming Encounters Date Type Department Care Team (Late st Contact Info) Description 03/10/2026 11:30 AM EDT Office Visit [facility] R[facility] [address] [phone] Oh Martinez MD [address] [address] Scheduled Orders Name Type Priority Associated Diagnoses Orde r Schedule CBC Auto Differential Lab Routine Psoriatic arthritis of multiple joints High risk medication use Expected: 08/28/2025 (Approximate), Expires: 11/23/2026 C-reactive Protein Lab Routine Psoriatic arthritis of multiple joints High risk medication use Expected: 08/28/2025 (Approximate), Expires: 11/23/2026 Comprehensive Metabolic Panel Lab Routine Psoriatic arthritis of multiple joints High risk medication use Expected: 08/28/2025 (Approximate), Expires: 11/23/2026 Sedimentation Rate Lab Routine Psoriatic arthritis of multiple joints High risk medication use Expected: 08/28/2025 (Approximate), Expires: 11/23/2026 QuantiFERON-TB Gold Plus (Li-Hep) Lab Routine Psoriatic arthritis of multiple joints High risk medication use Expected: 08/28/2025 (Approximate), Expires: 11/23/2026 documented as of this encounter Visit Diagnoses Diagnosis Psoriatic arthritis of multiple joints- Primary High risk medication use documented in this encounter Care Teams Fountain Vending Mechanic Relationship Specialty Start Date End Date Mckay Jordan MD [address] [place] [address] [place] [address] PCP - General Family Medicine 04/13/24 documented as of this encounter
--- OUTSIDE RECORDS SUMMARY | 2025-08-30 08:00 | XMS_ITS | Encounter Summary ---
Author Organization Healthcare Address [address] [place] [address] Care Team Providers Care Molded Goods Embossing Press Operator Name Role Phone Charan Gong MD Unavailable [phone] Mckay Jordan MD Primary Care Provider Tere Sierra Fritz MD Unavailable [phone] Encounter Details Date Type Department Care Team (Late st Contact Info) Description 08/30/2025 9:00 AM EDT Office Visit [place] [facility] Room E214 [address] [place] [address] January Martinez, DDS [address] [address] Kika Gregorio Obstructive sleep apnea (Primary Dx) Social History [...] Sign Reading Time Taken Comments Blood Pressure 119/68 08/30/2025 8:47 AM EDT Pulse 65 08/30/2025 8:47 AM EDT Temperature 36.7 C (98 F) 08/30/2025 8:47 AM EDT Respiratory Rate - - Oxygen Saturation 97% 08/30/2025 8:47 AM EDT Inhaled Oxygen Concentration - - Weight 111 kg (244 lb 0.8 oz) 08/30/2025 8:47 AM EDT Height 177.8 cm (5' 10 ) 08/30/2025 8:47 AM EDT Body Mass Index 35.02 08/30/2025 8:47 AM EDT documented in this encounter Miscellaneous Notes * Progress Notes - JgKika Adela - 08/30/2025 9:00 AM EDT Patient returned [facility] for a follow-up appointment to evaluate her Panthera appliance for the management of REBA during travel. History of present illness: Sue Dang reported no change in her symptoms since our last appointment. Reportedly, she uses the appliance every night for 8 hours and indicated using the AM physical science technician every morning for 10 minutes as recommended. She reported her urination has not changed (1-2). Sheindicated her snoring did not change and denied gasping for air. She doesn???t have a sleep partner, so she???s unsure about snoring, but noted that she doesn???t gasp for air. She plans to try recording herself while sleeping to assess this. She reported that the first night using the mandibular advancement device (MAD) was difficult because it was hard to get comfortable and it felt bulky, but things improved after that and she eventually got used to it. She reported not noticing much improvement in her sleep quality so far, saying it feels about the same as when she used CPAP. She mentioned that the bottom portion sometimes comes off during the night and can pinch her tonguewhen it does, although this doesn???t happen every night. She thinks it may occur when she???s in adeeper stage of sleep and possibly removing it subconsciously. EES=1. Sue Dang denied changes in her bite and denied pain in jaw muscles and/or TMJ. Appointment Date ESS Night-time urination 1st FU 08/30/2025 1 2 Medical history: Examination: Visit Vitals BP 119/68 Pulse 65 Temp 36.7 ??C (98 ??F) Ht 1.778 m (5' 10 ) Wt 111 kg (244 lb 0.8 oz) SpO2 97% BMI 35.02 kg/m?? No changes in occlusion noted since last appointment. No dental mobility was found NV occlusal contact with sven stock was noted between all teeth. No pain upon palpation. No noises were recorded. Procedure: Appliance had 6 mm of advancement. It was advanced 1 mm per side for a total of 7. It was tried for10 minutes and patient indicated it felt comfortable. Remaining protrusive movement 3mm. Appointment Date Adjustment of appliance Total amount of protrusion 1st FU 08/30/2025 1mm (Arm 29) 7mm Assessment: Mild obstructive sleep apnea managed by CPAP daily and MAD during travel Plan: Patient to use device consistently for one week before the next follow-up appointment. Patient to return for follow-up appointment in September. Cosigned by January Martinez DDS at 08/30/2025 2:10 PM EDT Associated attestation - January Martinez DDS - 08/30/2025 2:10 PM EDT I saw and evaluated the patient, I discussed the case with the student success advisor and agree with the notes as documented below. documented in this encounter Plan of Treatment Upcoming Encounters Date Type Department Care Team (Late st Contact Info) Description 10/06/2025 11:15 AM EST [facility] [place] [address] January Martinez DDS [address] [address] 03/28/2026 3:00 PM EDT Ovarian Cancer Screening [place] [facility] [address] [facility] [place] [phone] 04/21/2026 1:00 PM EDT Office Visit [facility] [address] [facility]nd [place] [address] April Loera PA [address] [facility] [address] [place] [address] documented as of this encounter Visit Diagnoses Diagnosis Obstructive sleep apnea- Primary Obstructive sleep apnea (adult) (pediatric) documented in this encounter Additional Health Concerns Assessment Noted Time A fall risk assessment has been complete d for the patient 04/12/2025 9:35 AM EDT A Body Mass Index follow-up plan has been documented for the patient 08/30/2025 2:14 PM EDT documented as of this encounter Care Teams Molded Goods Embossing Press Operator Relationship Specialty Start Date End Date Mckay Jordan MD [address] [facility] [address] [place] [address] PCP - General Family Medicine 10/01/22 Charan Gong MD [id number] [place] [phone] Consulting Physician Radiation Oncology 12/04/21 Sierra Molina MD [address] [facility] Guillermina Robertsrickson [facility] [address] [place] [address] Consulting Physician Hematology and Oncology 04/06/24 documented as of this encounter
--- OUTSIDE RECORDS SUMMARY | 2025-09-30 09:44 | XMS_ITS | Referral Summary ---
Author Organization [employer] ([place], [place], [place], [place], [place]) Address [address] [place] [address] Care Team Providers Care Detacker Name Role Phone Mckay Jordan MD Primary Care Provider [phone] Allergies Active Allergy Reactions Criticality Noted Date [...] Date Chicho rded Speak language other than Central African at home Not on file 12/05/2023 Want [...] file Insurance [employer] MEDICARE PPO Care Teams Detacker Relationship Specialty Start Date End Date Mckay Jordan MD [address] [place] [address] PCP - General Family Medicine 01/15/23
--- OUTSIDE RECORDS SUMMARY | 2025-09-30 09:44 | XMS_ITS | Data Portability ---
Author Organization [facility] GALINDO Ceballos [place] [facility] Address [address] [place] [address] Care Team Providers Care Customer Service Representative Teller Name Role Phone [facility] Primary Care Provider Assessment Encounter Date Assessment Date Assessment LastModified by Organization Details LastModified Time 08/15/2022 08/15/2022 Medical management of UTI with urine culture. Encouraged to stay well hydrated. Urine for culture and sensitivity. We discussed need for timed and double voids. [email or web address] Not available 08/15/2022 19:29:43 12/19/2022 12/19/2022 We discussed UTI prevention with adequate hydration and timed and double voids. We discussed options of suppression including cranberry tablets and/or d-mannose. [email or web address] Not available 12/21/2022 16:06:38 Plan of Treatment Reminders Order Date Submit Date Provider Last Modified By Organization Details Last Modified Time Details Appointments None recorded. Lab urinalysis panel, auto 2022 023 [email or web address] 14 [facility] With [facility], [place], [address], 16:06:39 urinalysis panel, auto 2021 022 [email or web address] 14 [facility], [address], [place], [address], 08:42:59 culture, urine 09/2021 HELGA [facility], [address] [place], [address], 11:17:23 culture, urine 2021 [email or web address] [facility], [address] [place], [address], 16:25:23 Referral None recorded. Procedures None recorded. Surgeries None recorded. Imaging None recorded. Medication Orders None recorded. Patient TargetsNo targets recorded. Patient Instructions Encounter Date Encounter Id Patient Instructions Last Modified By Organization Details Last Modified Time 08/15/2022 [id number] learning about healthy weight [email or web address] Not available 08/16/2022 08:42:59 learning about high blood pressure [email or web address] Not available 08/16/2022 08:42:59 12/19/2022 [id number] healthy together [email or web address] Not availa ble 12/21/2022 16:06:39 Reason for [...] davin; mixed skin silver . Not Available [facility] [address] [place], [address], 08/17/2022 13:06:52 08/15/20 22 08/15/2022 urina lysis panel , auto Unknown Analyte Clean Catch Not Available [facility] With [address]oreen Cosme, [place], [address], 08/15/2022 13:48:53 08/15/20 22 08/15/2022 urina lysis panel , auto Unknown Analyte Yellow Not Available [facility] With [facility] [address], [place], [address], 08/15/2022 13:48:53 08/15/20 22 08/15/2022 urina lysis panel , auto Unknown Analyte Clear Not Available [facility] [address], [place], [address], 08/15/2022 13:48:53 08/15/20 22 08/15/2022 urina lysis panel , auto Unknown Analyte 1.020 Not Available [facility] With [address] Logan F, [place], [address], 08/15/2022 13:48:53 08/15/20 22 08/15/2022 urina lysis panel , auto Unknown Analyte 1.003- 1.035 Not Available [facility] With [address], [place], [address], 08/15/2022 13:48:53 08/15/20 22 08/15/2022 urina lysis panel , auto Unknown Analyte 5.0 Not Available [facility] [address], [place], [address], 08/15/2022 13:48:53 08/15/20 22 08/15/2022 urina lysis panel , auto Unknown Analyte 5.0-8. 0 Not Available [facility] With [address], [place], [address], 08/15/2022 13:48:53 08/15/20 22 08/15/2022 urina lysis panel , auto Unknown Analyte 500 Miguel/ul (++) Not Available [facility] [address], [place], [address], 08/15/2022 13:48:53 08/15/20 22 08/15/2022 urina lysis panel , auto Unknown Analyte Negati ve Not Available [facility] With [address], [place], [address], 08/15/2022 13:48:53 08/15/20 22 08/15/2022 urina lysis panel , auto Unknown Analyte Negati ve Not Available [facility] With [address], [place], [address], 08/15/2022 13:48:53 08/15/20 22 08/15/2022 urina lysis panel , auto Unknown Analyte Negati ve Not Available [facility] [address], [place], [address], 08/15/2022 13:48:53 08/15/20 22 08/15/2022 urina lysis panel , auto Unknown Analyte Negati ve Not Available [facility] With [address], [place], [address], 08/15/2022 13:48:53 08/15/20 22 08/15/2022 urina lysis panel , auto Unknown Analyte Negati ve Not Available [facility] With [address], [place], [address], 08/15/2022 13:48:53 08/15/20 22 08/15/2022 urina lysis panel , auto Unknown Analyte Normal Not Available [facility] With [address], [place], [address], 08/15/2022 13:48:53 08/15/20 22 08/15/2022 urina lysis panel , auto Unknown Analyte Normal Not Available [facility] With [address], [place], [address], 08/15/2022 13:48:53 08/15/20 22 08/15/2022 urina lysis panel , auto Unknown Analyte Negati ve Not Available [facility] With [address]oreen Cosme, [place], [address], 08/15/2022 13:48:53 08/15/20 22 08/15/2022 urina lysis panel , auto Unknown Analyte Negati ve Not Available [facility] With [address], [place], [address], 08/15/2022 13:48:53 08/15/20 22 08/15/2022 urina lysis panel , auto Unknown Analyte Normal Not Available [facility] With [address] Doreen Cosme, [place], [address], 08/15/2022 13:48:53 08/15/20 22 08/15/2022 urina lysis panel , auto Unknown Analyte Normal 1 mg/dl Not Available [facility] With [address], [place], [address], 08/15/2022 13:48:53 08/15/20 22 08/15/2022 urina lysis panel , auto Unknown Analyte Negati ve Not Available [facility] With [address], [place], [address], 08/15/2022 13:48:53 08/15/20 22 08/15/2022 urina lysis panel , auto Unknown Analyte Negati ve Not Available [facility] With [address], [place], [address], 08/15/2022 13:48:53 08/15/20 22 08/15/2022 urina lysis panel , auto Unknown Analyte Negati ve Not Available [facility] With [address], [place], [address], 08/15/2022 13:48:53 08/15/20 22 08/15/2022 urina lysis panel , auto Unknown Analyte Negati ve Not Available [facility] With [address] Logan F, [place], [address], 08/15/2022 13:48:53 12/19/19 23 12/19/2022 urina lysis panel , auto Unknown Analyte Clean Catch Not Available [facility] With [address], [place], [address], 12/19/2022 13:22:22 12/19/19 23 12/19/2022 urina lysis panel , auto Unknown Analyte Yellow Not Available [facility] With [address], [place], [address], 12/19/2022 13:22:22 12/19/19 23 12/19/2022 urina lysis panel , auto Unknown Analyte Clear Not Available [facility] With [address], [place], [address], 12/19/2022 13:22:22 12/19/19 23 12/19/2022 urina lysis panel , auto Unknown Analyte 1.000 Not Available [facility] With [address], [place], [address], 12/19/2022 13:22:22 12/19/19 23 12/19/2022 urina lysis panel , auto Unknown Analyte 1.003- 1.035 Not Available [facility] With [address], [place], [address], 12/19/2022 13:22:22 12/19/19 23 12/19/2022 urina lysis panel , auto Unknown Analyte 7.0 Not Available [facility] With [address], [place], [address], 12/19/2022 13:22:22 12/19/19 23 12/19/2022 urina lysis panel , auto Unknown Analyte 5.0-8. 0 Not Available [facility] [place] [address]oreen Cosme, [place], [address], 12/19/2022 13:22:22 12/19/19 23 12/19/2022 urina lysis panel , auto Unknown Analyte 500 Miguel/ul (++) Not Available [facility] [place] [address]oreen Cosme, [place], [address], 12/19/2022 13:22:22 12/19/19 23 12/19/2022 urina lysis panel , auto Unknown Analyte Negati ve Not Available [facility] With [address]oreen Cosme, [place], [address], 12/19/2022 13:22:22 12/19/19 23 12/19/2022 urina lysis panel , auto Unknown Analyte Negati ve Not Available [facility] With [address]oreen Cosme, [place], [address], 12/19/2022 13:22:22 12/19/19 23 12/19/2022 urina lysis panel , auto Unknown Analyte Negati ve Not Available [facility] With [address], [place], [address], 12/19/2022 13:22:22 12/19/19 23 12/19/2022 urina lysis panel , auto Unknown Analyte Negati ve Not Available [facility] [place] With [address]me, [place], [address], 12/19/2022 13:22:22 12/19/19 23 12/19/2022 urina lysis panel , auto Unknown Analyte Negati ve Not Available [facility] With [address], [place], [address], 12/19/2022 13:22:22 12/19/19 23 12/19/2022 urina lysis panel , auto Unknown Analyte Normal Not Available [facility] With [address], [place], [address], 12/19/2022 13:22:22 12/19/19 23 12/19/2022 urina lysis panel , auto Unknown Analyte Normal Not Available [facility] With [address], [place], [address], 12/19/2022 13:22:22 12/19/19 23 12/19/2022 urina lysis panel , auto Unknown Analyte Negati ve Not Available [facility] With [address], [place], [address], 12/19/2022 13:22:22 12/19/19 23 12/19/2022 urina lysis panel , auto Unknown Analyte Negati ve Not Available [facility] With [address], [place], [address], 12/19/2022 13:22:22 12/19/19 23 12/19/2022 urina lysis panel , auto Unknown Analyte Normal Not Available [facility] With [address], [place], [address], 12/19/2022 13:22:22 12/19/19 23 12/19/2022 urina lysis panel , auto Unknown Analyte Normal 1 mg/dl Not Available [facility] With [address], [place], [address], 12/19/2022 13:22:22 12/19/19 23 12/19/2022 urina lysis panel , auto Unknown Analyte Negati ve Not Available [facility] With [address], [place], [address], 12/19/2022 13:22:22 12/19/19 23 12/19/2022 urina lysis panel , auto Unknown Analyte Negati ve Not Available [facility] With [address], [place], [address], 12/19/2022 13:22:22 12/19/19 23 12/19/2022 urina lysis panel , auto Unknown Analyte Negati ve Not Available [facility] With [address], [place], [address], 12/19/2022 13:22:22 12/19/19 23 12/19/2022 urina lysis panel , auto Unknown Analyte Negati ve Not Available [facility] With [address], [place], [address], 12/19/2022 13:22:22 Result Notes None recorded. Procedures Surgical History Date Name Laterality Status Provider Name and Address Organization Details Recorded Time Hysterectomy completed Murelene Anshu [facility] 08/15/2022 13:46:22 Cholecystectomy completed Murelene Anshu [facility] 08/15/2022 13:46:31 Bilateral mastectomy completed Murelene Anshu [facility] 08/15/2022 13:47:34 Imaging Results None recorded. Procedure Notes None recorded. Medical Equipment None Reported. Allergies Allergen ID Allergen Name Allergen Category Reaction Reaction Severity Criticality Documentation Date Start Date Code Code System Note Provider Name and Address Organization Details Recorded Time 023399 Product containin g penicilli n (product) medicatio n Not available Not available Not available 08/15/2022 51389 8001 SNOMED Murelene Anshu [facility] 13:42:15 148298 Substance with sulfonami de structure and antibacte rial mechanism of action (substanc e) medicatio n Not available Not available Not available 08/15/2022 90269 8003 SNOMED Ema Brasher [facility] 13:42:24 Medications Name Sig Start [...] Updated DateTime 12/19/2022 177.8 cm 31.9 kg/m2 346494.51 g Queta Shankarford [facility] 12/19/2022 13:21:43 Date Recorded Body height Body mass index (BMI) Body weight Provider Name and Address Organization Details Last Updated DateTime 08/15/2022 177.8 cm 31.9 kg/m2 028482.51 g Ema Brasher [facility] 08/15/2022 13:41:55 Social History Question Answer Notes LastModified by Organizat ion Details LastModified Time Tobacco Smoking Status Never Smoker Ema Brasher [facility] 08/15/2022 13:46:13 What Was The Date Of Your Most Recent Tobacco Screening? 08/15/2022 [email or web address] Information not available 08/15/2022 Sex: Unknown Functional Status None recorded. Mental Status None recorded. Family History Relationship Description Onset Age of this Age Resolved Age Notes LastModified by Organization Details LastModified Time Father Malignant neoplasm of prostate [email or web address] Not available 2021 13:45:45 Mother Kidney stone [email or web address] Not availab le 08/15/2022 13:46:01 Medical History Condition Response Arthritis Y Hypertension Y Sleep Apnea Y Gynecological HistoryNo gynecological history recorded. Obstetrics History GPAL:G 0 P 0 0 0 0 Past Encounters Encounter ID Performer Location Encounter Start Date Encounter Closed Date Diagnosis/Indication Diagnosis SNOMED-CT Code Diagnosis ICD10 Code Diagnosis IMO Codes Diagnosis Note [id number] SINGH MCDANIEL MD [address] [address] 08/15/2022 13:22:25 08/16/2022 16:50:56 Urinary tract infectious disease 51355437 N39.0 Hypertensive disorder 38 723486 I10 [id number] SINGH MCDANIEL MD [facility] [address] [address] 12/19/2022 13:21:07 12/22/2022 04:05:06 Recurrent urinary tract infection 546349370 N39.0 Health Concerns Section Related Observation LastModified by Organization Detai ls LastModified Time None Recorded Concern Status LastModified by Organization Details LastModified Time None Recorded Advance Directives Directive None Recorded Payers Insurance Date Sequence Insurance Name Policy Number Policy Franks Covered Member ID Franks Member ID Guarantor Name 12/24/2022 1 [place] Sue J Laurence [id number] 1 Sue J Laurence 12/24/2022 1 [employer] (MEDICARE REPLACEMENT/A DVANTAGE - PPO) Sue J [place] [id number] Sue J [place] 12/24/2022 [employer] (MEDICARE REPLACEMENT/A DVANTAGE - PPO) Sue J Laurence [id number] Sue J [place] 09/12/2022 2 [employer] (MEDICARE SUPPLEMENT) Sue J Laurence [id number] Sue J [place] 12/24/2022 2 [employer] (MEDICARE SUPPLEMENT) [id number] Sue J [place] [id number] Sue J Laurence Notes Date Note Type [...] gross hematuria. No dysuria. SINGH MCDANIEL MD [address] [place] [address], [address], [facility] 08/15/2022 19:29:54 12/19/2022 text/html 72-year-old female in the office for follow-up evaluation of recurrent urinary infections. No recent UTIs. She reports normal daytime frequency with nocturia 0 to once nightly. No gross hematuria or dysuria. SINGH MCDANIEL MD [address] [place] [address], [address], [facility] 12/21/2022 16:06:57 OBGyn Episode No OBEpisode recorded.
--- OUTSIDE RECORDS SUMMARY | 2025-09-30 09:44 | XMS_ITS | Clinical Summary ---
Author Organization [facility] [employer] [facility] Address [address] [place] [address] Care Team Providers Care Reconstructive Dentist Name Role Phone Mckay Jordan MD Primary Care Provider [phone] Allergies Active Allergy Reactions Criticality Noted Date Comments Penicillins Rash Low 04/12/2024 Sulfa Antibiotics Rash Low 04/12/2024 Medications multivitamin with minerals (PRESERVISION AREDS PO) Take 1 tablet by mouth Daily. PreserVision AREDS 14,320 unit-226 mg-200 Active allopurinol (ZYLOPRIM) 100 MG tablet Take 1 tablet by mouth Daily. Active montelukast (SINGULAIR) 10 MG tablet Active losartan (COZAAR) 25 MG tablet Take 1 tablet by mouth Daily. Active carvedilol (COREG) 25 MG tablet Take 1 tablet by mouth 2 (Two) Times a Day With Meals. Active amLODIPine (NORVASC) 5 MG tablet Take 1 tablet by mouth Daily. Active cyanocobalamin (VITAMIN B-12) 250 MCG tablet Take 1 tablet by mouth Daily. Active ferrous sulfate 324 (65 Fe) MG tablet delayed-release EC tablet Take 1 tablet by mouth Daily With Breakfast. 5 Active metFORMIN ER (GLUCOPHAGE-XR) 500 MG 24 hr tablet Take 1 tablet by mouth Daily With Breakfast. 5 Active rosuvastatin (CRESTOR) 5 MG tablet Take 1 tablet by mouth Daily. 5 Active Risankizumab-rz aa (Skyrizi Pen) 150 MG/ML [...] q 4wk(Novartis assistance; start derm dr Susan Torer) prior MTX 2009 prior humira 7.14 biweekly [...] monitoring as below Follow-up in 6 months Encounters Date Type Department Care Team Description 09/21/2025 Telephone [facility] [address] [place] [address] Tanika Tracy, PharmD 08/23/2025 11:30 AM EDT Office Visit [facility] [address] [place] [address] Oh Martinez MD Psoriatic arthritis of multiple joints (Primary Dx); High risk medication use 08/23/2025 Telephone [facility] [address] [place] [address] Oh Martinez MD 08/23/2025 Travel 08/04/2025 Telephone [facility] [address] [place] [address] Oh Martinez MD from Last 3 Months Immunizations Immunization Administration Dates Next Due COVID-19 [...] Mass Index 34.58 08/23/2025 11:21 AM EDT Plan of Treatment Upcoming Encounters Date Type Department Care Team (Late st Contact Info) Description 03/10/2026 11:30 AM EDT Office Visit [facility] [address] [address] Oh Martinez MD [address] [address] Health Maintenance Due Date Last Done Comments [...] WELLNESS VISIT 04/12/2024 HEPATITIS C SCREENING 04/12/2024 INFLUENZA VACCINE 06/17/2025 09/09/2018 COVID-19 Vaccine (4 - 2024-2 6 season) 2025 02/02/2021, 01/11/2021, 12/11/2020 DXA SCAN 10/07/2025 10/07/2023, 10/07/2023 Insurance [employer] MEDICARE ADVANTAGE PPO Care Teams Reconstructive Dentist Relationship Specialty Start Date End Date Mckay Jordan MD [facility] [place] [address] PCP - General Family Medicine 04/13/24
--- OUTSIDE RECORDS SUMMARY | 2025-09-30 09:44 | XMS_ITS | Encounter Summary ---
Author Organization Healthcare Address [address] [place] [address] Care Team Providers Care Neonatal Social Worker Name Role Phone Charan Gong MD Unavailable [phone] Mckay Jordan MD Primary Care Provider Tere Sierra Fritz MD Unavailable [phone] Reason for Referral * Consultation (Routine) - Closed Specialty Diagnoses / Procedures Referred By Contbhupendra mccarthy Referred To Contact Dentist / Pain Medicine Diagnoses Obstructive sleep apnea (adult) (pediatric) Katie Ware MD [address] [place] [address] Phone: tel: fax: January Martinez, DDS [address] [facility] [address] [place] [address] Phone: tel: fax: Referral ID Status Reason Start Date Expiration Date Visits Re quested Visits Authorized [id number] Closed 03/18/2025 09/17/2026 1 1 Encounter Details Date Type Department Care Team (Late st Contact Info) Description 03/18/2025 Community [facility] [address] [place] [address] Katie Ware MD [address] [...] Description 10/06/2025 11:15 AM EST [facility] Room [address] [place] [address] January Martinez, DDS [address] [facility] [address] [place] [address] 03/28/2026 3:00 PM EDT Ovarian Cancer Screening [facility] [address] [place] [address] 04/21/2026 1:00 PM EDT Office Visit [facility] [address] [place] [address] April Loera PA [address] [place] [address] Scheduled Referrals Name Type Priority Associated Diagnoses [...] documented as of this encounter Care Teams Neonatal Social Worker Relationship Specialty Start Date End Date Mckay Jordan MD [address] [address] PCP - General Family Medicine 10/01/22 Charan Gong MD [address] [address] Consulting Physician Radiation Oncology 12/04/21 Sierra Molina MD [address] Guillermina Hoover [address] [address] Consulting Physician Hematology and Oncology 04/06/24 documented as of this encounter
--- OUTSIDE RECORDS SUMMARY | 2025-09-30 09:45 | XMS_ITS | Encounter Summary ---
Author Organization [facility] Address [address] [place] [address] Care Team Providers Care Job Placement Specialist Name Role Phone Mckay Jordan MD Primary Care Provider [phone] Encounter Details Date Type Department Care Team (Late st Contact Info) Description 08/23/2025 Telephone [facility] RHEUMATOLOGY [address] [address] Oh Martinez MD [address] [phone] Social History Tobacco Use Types Packs/Day Years [...] encounter Miscellaneous Notes * Telephone Encounter - Tanika Tracy PharmD - 09/22/2025 9:32 AM EST Spoke with the patient, she said that she is approved through 11.16.26 * Telephone Encounter - Tanika Tracy PharmD - 09/21/2025 1:36 PM EST LVM for patient to call back, we have filled out the provider portion but need to know if the patient needs to have her portion mailed * Telephone Encounter - Oh Martinez MD - 08/23/2025 11:44 AM EDT Needs renewal Skyrizi assistance which ends October documented in this encounter Plan of Treatment Upcoming Encounters Date Type Department Care Team (Late st Contact Info) Description 03/10/2026 11:30 AM EDT Office Visit [facility] RHEUMATOLOGY [address] [address] Oh Martinez MD [address] [address] documented as of this encounter Visit Diagnoses Not on filedocumented in this encounter Care Teams Job Placement Specialist Relationship Specialty Start Date End Date Mckay Jordan MD [address] [place] [address] [place] [address] PCP - General Family Medicine 04/13/24 documented as of this encounter
--- OUTSIDE RECORDS SUMMARY | 2025-09-30 09:45 | XMS_ITS | Encounter Summary ---
Author Organization Healthcare Address [address] [place] [address] Care Team Providers Care Dinkey Locomotive Operator Name Role Phone Charan Gong MD Unavailable [phone] Mckay Jordan MD Primary Care Provider Tere Sierra Fritz MD Unavailable [phone] Encounter Details Date Type Department Care Team (Late st Contact Info) Description 08/11/2025 Telephone [facility] Room E214 [address] [place] [address] January Martinez DDS [address] [address] Social History Tobacco Use Types Packs/Day Years [...] encounter Miscellaneous Notes * Telephone Encounter - January Martinez DDS - 08/16/2025 1:15 PM EDT Enter dental lab. documented in this encounter Plan of Treatment Upcoming Encounters Date Type Department Care Team (Late st Contact Info) Description 10/06/2025 11:15 AM EST Office Visit [place] [facility] Room E214 [address] [place] [address] January Martinez DDS [address] [place] [address] 03/28/2026 3:00 PM EDT Ovarian Cancer Screening [facility] [address] [place] [address] 04/21/2026 1:00 PM EDT Office Visit [facility] [address] 2[address] [place] [address] April Loera, RAEANN [address] [place] [phone] documented as of this encounter Procedures Procedure Name Priority Date/Time Associated Diagnosis Comments DENTAL LAB Routine 08/29/2025 1:32 PM EDT Obstructive sleep apnea documented in this encounter Results * DENTAL LAB (08/29/2025 1:32 PM EDT) Loera 399.00 $ Comment:$399.00 [place] #[place] [id number] Date 07-06-2025 Accepted? Yes Invoice Split? Yes us January Ayala DDS DENTAL LAB ORDERAB LES Final Result documented in this encounter Visit Diagnoses Diagnosis Obstructive sleep apnea- Primary Obstructive sleep apnea (adult) (pediatric) documented in this encounter Additional Health Concerns Assessment Noted Time A fall risk assessment has been complete d for the patient 04/12/2025 9:35 AM EDT A Body Mass Index follow-up plan has been documented for the patient 08/11/2025 12:01 PM EDT documented as of this encounter Care Teams Dinkey Locomotive Operator Relationship Specialty Start Date End Date Mckay Jordan MD [address] [address] PCP - General Family Medicine 10/01/22 Charan Gong MD [address] [phone] Consulting Physician Radiation Oncology 12/04/21 Sierra Molina MD [address] Sne[address] [phone] Consulting Physician Hematology and Oncology 04/06/24 documented as of this encounter
--- OUTSIDE RECORDS SUMMARY | 2025-09-30 09:45 | XMS_ITS | Encounter Summary ---
Author Organization Healthcare Address [address] [place] [address] Care Team Providers Care Telecommunications Professional Name Role Phone Charan Gong MD Unavailable [phone] Mckay Jordan MD Primary Care Provider Tere Sierra Fritz MD Unavailable [phone] Encounter Details Date Type Department Care Team (Latest Contact Info) Description 08/10/2025 Travel Social History Tobacco Use Types Packs/Day [...] Clinic O[facility] Pain Clinic [facility] Room E214 [address] [place] [address] January Martinez, S [address] [address] 03/28/2026 3:00 PM EDT Ovarian Cancer Screening [facility] [address] [facility] [place] [address] 04/21/2026 1:00 PM EDT Office Visit [facility] [address] [facility], 2nd [place] [address] April Loera PA [address] [facility] 2nd [place] [address] documented as of this encounter Visit Diagnoses Not on filedocumented in this encounter Additional Health Concerns Assessment Noted Time A fall risk assessment has been complete d for the patient 04/12/2025 9:35 AM EDT A Body Mass Index follow-up plan has been documented for the patient 07/01/2025 11:58 AM EDT documented as of this encounter Care Teams Telecommunications Professional Relationship Specialty Start Date End Date Mckay Jordan MD [id number] [place] [address] PCP - General Family Medicine 10/01/22 Charan Gong MD [address] [phone] Consulting Physician Radiation Oncology 12/04/21 Sierra Molina MD 800 [facility] Guillermina Sneha [address] [address] Consulting Physician Hematology and Oncology 04/06/24 documented as of this encounter
--- OUTSIDE RECORDS SUMMARY | 2025-09-30 09:45 | XMS_ITS | Encounter Summary ---
Author Organization Healthcare Address [address] [place] [address] Care Team Providers Care Child Welfare Assistant Name Role Phone Charan Gong MD Unavailable [phone] Mckay Jordan MD Primary Care Provider Tere Sierra Fritz MD Unavailable [phone] Encounter Details Date Type Department Care Team (Latest Contact Info) Description 08/30/2025 Travel Social History Tobacco Use Types Packs/Day [...] Clinic [facility] Room E214 [address] [place] [address] January Martinez, S [address] [address] 03/28/2026 3:00 PM EDT Ovarian Cancer Screening [facility] [address] [facility] [place] [address] 04/21/2026 1:00 PM EDT Office Visit [facility] [address] [facility], 2nd [place] [address] April Loera PA [address] [facility] [address]nd [place] [phone] documented as of this encounter Visit Diagnoses Not on filedocumented in this encounter Additional Health Concerns Assessment Noted Time A fall risk assessment has been complete d for the patient 04/12/2025 9:35 AM EDT A Body Mass Index follow-up plan has been documented for the patient 08/30/2025 2:14 PM EDT documented as of this encounter Care Teams Child Welfare Assistant Relationship Specialty Start Date End Date Mckay Jordan MD [id number] [place] [address] PCP - General Family Medicine 10/01/22 Charan Gong MD [address] [phone] Consulting Physician Radiation Oncology 12/04/21 Sierra Molina MD [address] [facility] Guillermina Sneha [address] [address] Consulting Physician Hematology and Oncology 04/06/24 documented as of this encounter
--- OUTSIDE RECORDS SUMMARY | 2025-09-30 09:45 | XMS_ITS | Encounter Summary ---
Author Organization [facility] Address [address] [place] [address] Care Team Providers Care Hat Block Maker Name Role Phone Mckay Jordan MD Primary Care Provider [phone]- [phone] Encounter Details Date Type Department Care Team (Latest Contact Info) Description 08/23/2025 Travel Social History Tobacco Use Types Packs/Day [...] Description 03/10/2026 11:30 AM EDT Office Visit [facility] RHEUMATOLOGY 330 [facility] 100 [place] [phone] Oh Martinez MD 330 [facility] 100 [place] [address] documented as of this encounter Visit Diagnoses Not on filedocumented in this encounter Care Teams Hat Block Maker Relationship Specialty Start Date End Date Mckay Jordan MD [address] [place] [address] [place] [address] PCP - General Family Medicine 04/13/24 documented as of this encounter
--- OUTSIDE RECORDS SUMMARY | 2025-09-30 09:45 | XMS_ITS | Encounter Summary ---
Author Organization [facility] Address [address] [place] [address] Care Team Providers Care Pre Fabricator Name Role Phone Mckay Jordan MD Primary Care Provider [phone]- [phone] Encounter Details Date Type Department Care Team (Late Contact Info) Description 03/16/2025 Results Follow-Up [facility] RHEUMATOLOGY [address] [address] Oh Martinez MD [address] [place] [address] [phone] Social History Tobacco Use Types Packs/Day Years [...] Department Care Team (Late Contact Info) Description 03/10/2026 11:30 AM EDT Office Visit [facility] RHEUMATOLOGY [address] [address] Oh Martinez MD [address] [place] [address] [phone] documented as of this encounter Visit Diagnoses Not on filedocumented in this encounter Care Teams Pre Fabricator Relationship Specialty Start Date End Date Mckay Jordan MD [address] [place] [address] [place] [address] PCP - General Family Medicine 04/13/24 documented as of this encounter
--- OUTSIDE RECORDS SUMMARY | 2025-09-30 09:45 | XMS_ITS | Encounter Summary ---
Author Organization Healthcare Address [address] [place] [address] Care Team Providers Care Neon Light Installer Name Role Phone Charan Gong MD Unavailable [phone] Mckay Jordan MD Primary Care Provider Tere Sierra Fritz MD Unavailable [phone] Encounter Details Date Type Department Care Team (Latest Contact Info) Description 08/11/2025 Travel Social History Tobacco Use Types Packs/Day [...] Clinic O[facility]facial Pain Clinic [facility] Room E214 [address] [place] [address] January Martinez, S [address] [address] 03/28/2026 3:00 PM EDT Ovarian Cancer Screening [facility] [address] [facility] [place] [address] 04/21/2026 1:00 PM EDT Office Visit [facility] 7[address] [facility], 2nd [place] [address] April Loera PA 800 [facility] 2nd [place] [address] documented as of this encounter Visit Diagnoses Not on filedocumented in this encounter Additional Health Concerns Assessment Noted Time A fall risk assessment has been complete d for the patient 04/12/2025 9:35 AM EDT A Body Mass Index follow-up plan has been documented for the patient 08/11/2025 12:01 PM EDT documented as of this encounter Care Teams Neon Light Installer Relationship Specialty Start Date End Date Mckay Jordan MD [id number] [place] [address] PCP - General Family Medicine 10/01/22 Charan Gong MD [address] [phone] Consulting Physician Radiation Oncology 12/04/21 Sierra Molina MD 800 [facility] Guillermina Sneha [address] [address] Consulting Physician Hematology and Oncology 04/06/24 documented as of this encounter
--- OUTSIDE RECORDS SUMMARY | 2025-09-30 09:45 | XMS_ITS ---
Author Organization [facility] Address [address] [place] [address] Care Team Providers Care Power Regulator Name Role Phone Mckay Jordan MD Primary Care Provider [phone]- [phone] Rheumatology - External Fill Status:Enrolled (Active) Start date:09/29/2024 Enrollment date:09/29/2024 Enrollment reason:Identified as being on target medication Current support & services provided:Benefits Investigation, External Pharmacy Dispensing Linked medications:Risankizumab-rzaa (Active) Linked problems:Psoriasis (Active), Psoriatic arthritis of multiple joints (Active) Overview Patient will be mailed a PAP application for Jake on 10.26.24 Continued Care and Services Coordination
--- OUTSIDE RECORDS SUMMARY | 2025-09-30 09:45 | XMS_ITS | Encounter Summary ---
Author Organization [facility] Address [address] [place] [address] Care Team Providers Care Fuel Handler Name Role Phone Mckay Jordan MD Primary Care Provider [phone]- [phone] Reason for Visit * Reason Onset Date Comments MED REFILL NEEDED 09/28/2024 Encounter Details Date Type Department Care Team (Late st Contact Info) Description 09/28/2024 Telephone [facility] RHEUMATOLOGY [address] [address] Oh Martinez MD [address] [address] MED REFILL NEEDED Social History Tobacco Use [...] to patient: Self Best call back number: [phone] Patient is needing: PT CALLED AND SAID THE Secukinumab (Cosentyx UnoReady) 300 MG/2ML solution auto-injector NEEDS TO BE SENT TO [facility], IT WAS SUPPOSED TO BE APPROVED THROUGH THE END OF THE YEAR BUT IT'S ALREADY UP. documented in this encounter Plan of Treatment Upcoming Encounters Date Type Department Care Team (Late st Contact Info) Description 03/10/2026 11:30 AM EDT Office Visit [facility] RHEUM[facility] [address] [address] Oh Martinez MD [address] [address] documented as of this encounter Visit Diagnoses Not on filedocumented in this encounter Care Teams Fuel Handler Relationship Specialty Start Date End Date Mckay Jordan MD [address] [place] [address] PCP - General Family Medicine 04/13/24 documented as of this encounter
--- OUTSIDE RECORDS SUMMARY | 2025-09-30 09:45 | XMS_ITS | Clinical Summary ---
Author Organization [facility] ([place], [place], [place], [place], [place]) Address [address] [place] [address] Care Team Providers Care Fruit Express Agent Name Role Phone Mckay Jordan MD Primary Care Provider +1- [phone] Allergies Active Allergy Reactions Criticality Noted Date [...] Date Chicho rded Speak language other than Lao at home Not on file 12/05/2023 Want [...] Shingles Vaccine (Zoster) (1 of 2) 02/11/2002 Respiratory Syncytial Virus (RSV) Adult or (1 - Risk 60-74 years 1-dose series) 2012 COVID-19 VACCINE (3 - Pfizer risk series) 03/02/2021 02/02/2021, 01/11/2021 Tobacco Cessation Counseling and Screening (12+) 04/10/2024 04/10/2023 Falls Risk Screening 11/17/2024 Influenza Vaccine (#1) 2025 Insurance [facility] MEDICARE PPO Care Teams Fruit Express Agent Relationship Specialty Start Date End Date Mcaky Jordan MD [address] [address] PCP - General Family Medicine 01/15/23
--- OUTSIDE RECORDS SUMMARY | 2025-09-30 09:45 | XMS_ITS | Clinical Summary ---
Author Organization [facility] Address [address] [place] [address] Care Team Providers Care Orthopaedic Doctor Name Role Phone Charan Gong MD Unavailable [phone] Mckay Jordan MD Primary Care Provider Tere Sierra Fritz MD Unavailable [phone] Allergies Active Allergy Reactions Criticality Noted [...] montelukast (Singulair) 10 MG tablet 05/29/2021 Active cyanocobalamin (Vitamin B-12) 250 MCG tablet [...] UNABLE TO FIND Med Name: Nilton. Active ferrous sulfate 324 (65 Fe) MG EC tablet 06/28/2025 Active Active Problems Problem Noted Date Diagnosed Date Allergies 08/11/2025 Hypertension 08/11/2025 Palpitations 08/11/2025 Encounter for monitoring adjuvant hormonal thera py 10/11/2024 Psoriasis 04/13/2024 Invasive ductal carcinoma of breast 01/28/2020 Cancer Staging:Pathologic stage from 01/25/2020:Stage IIB(pT2, pN1a, cM0, G2, ER+, WA-, HER2-, Oncotype DX score: 21) - Unsigned Overview (04/02/2022): Malignant neoplasm of unspecified site of unspecified female breast Encounters Date Type Department Care Team Description 08/30/2025 9:00 AM EDT Office Visit [facility] Orofacial Pain Clinic Orofacial Pain Clinic [facility] Room [address] [place] [address] January Martinez DDS Habib, Salma K Obstructive sleep apnea (Primary Dx) 08/30/2025 Travel 08/11/2025 10:30 AM EDT Office Visit [facility] O[facility]facial Pain Clinic Orofacial Pain Clinic [facility] Room [employer] [facility] [employer] [facility] [address] [place] [address] January Martinez DDS Manocha, Nikhil Obstructive sleep apnea (Primary Dx) 08/11/2025 Telephone [facility]facial Pain Clinic O[facility]facial Pain Clinic [facility] Room [facility] [place] [address] January Martinez DDS 08/11/2025 Travel 08/10/2025 Travel 06/30/2025 11:15 AM EDT Office Visit [facility] Pain Clinic [facility] Clinic [facility] Room [address] [place] [address] January Martinez DDS Habib, Salma K Obstructive sleep apnea (Primary Dx) 06/30/2025 Travel from Last 3 Months Family History [...] F) 08/30/2025 8:47 AM EDT Respiratory Rate 16 04/12/2025 9:27 AM EDT Oxygen Saturation 97% 08/30/2025 8:47 AM EDT Inhaled Oxygen Concentration - - Weight 111 kg (244 lb 0.8 oz) 08/30/2025 8:47 AM EDT Height 177.8 cm (5' 10 ) 08/30/2025 8:47 AM EDT Body Mass Index 35.02 08/30/2025 8:47 AM EDT Plan of Treatment Upcoming Encounters Date Type Department Care Team (Late st Contact Info) Description 10/06/2025 11:15 AM EST Office Visit [facility] Clinic [facility] Room E2 [address] [place] [address] January Martinez, DDS [address] [address] 03/28/2026 3:00 PM EDT Ovarian Cancer Screening [facility] [address] [facility] [place] [address] 04/21/2026 1:00 PM EDT Office Visit [facility] 7[address] [facility], 2nd [place] [address] April Loera, RAEANN [address] [address] Health Maintenance Due Date Last Done Comments Dental Oral Exam 1950 Dental Prophylaxis 1950 Dental X-Ray: Bitewings 1950 Dental X-Ray: Full Mouth 1950 [facility]-Hepatitis C Screening 1950 [facility]-Medicare Annual Wellness (AWV) 1950 [facility]-/Child/Adol SDOH Screenings 1950 [facility]- SDOH Screenings 02/11/1970 [facility]-Adult SDOH Screenings 02/11/1970 [facility]-DTaP,Tdap,and Td Vaccines (1 - Tdap) 02/11/1971 [facility]-Pneumococcal Vaccine: 50+ Years (1 of 2 - PCV) 02/11/1971 [facility]-Zoster Vaccines (1 of 2) 02/11/1971 CT Colonography 02/11/1997 Colonoscopy 02/11/1997 FIT-DNA 02/11/1997 FIT 02/11/1997 FOBT 02/11/1997 Sigmoidoscopy 02/11/1997 [facility]-Colorectal Cancer Screening 02/11/1997 [facility]-RSV Vaccine: 60+ Years or (1 - Risk 60-74 years 1-dose series) 2012 [id number] Vaccine (4 - 2024- season) 2025 02/02/2021, 01/11/2021, 12/11/2020 [facility]-Influenza Vaccine (#1) 2025 09/09/2018 [facility]-Bone Density Scan 10/07/2025 10/07/2023 [facility]-Depression Screening 04/12/2026 04/12/2025 [facility]-Obesity Intervention Completed 025, 08/11/2025, 06/30/2025, Additional history exists HPV Vaccines Aged Out No longer eligi [...] 08/29/2025 1:32 PM EDT Obstructive sleep apnea WA ORAL DEVICE/APPLIANCE CUSFAB- IN PROCESS Routine 06/30/2025 11:15 AM EDT Obstructive sleep apnea DEXA BONE DENSITY Routine 10/07/2023 9:4 0 AM EST 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 Yes Invoice Split? Yes January Ayala DDS DENTAL LAB ORDERAB LES Final Result * Dexa Bone Density (10/07/2023 9:40 AM EST) Anatomical Region Laterality Modality L-spine Radiographic Rand ging Narrative 10/12/2023 6:14 PM EST [facility] - Nephrology, Bone & Mineral Metabolism [address] [place] [address] DXA Bone Densitometry Report: [DAY/DATE] BMD test performed using the eventblimpXA DXA System (analysis version: 14.10) manufactured by [employer]. CLINICAL INFORMATION: PATIENT NAME: Sue Dang PATIENT [...] Most Recently Relevant to Health Maintenance Insurance [facility] MEDICARE Care Teams Orthopaedic Doctor Relationship Specialty Start Date End Date Mckay Jordan MD [address] [address] PCP - General Family Medicine 10/01/22 Charan Gong MD [address] [phone] Consulting Physician Radiation Oncology 12/04/21 Sierra Molina MD [address] [address] Consulting Physician Hematology and Oncology 04/06/24
--- OUTSIDE RECORDS SUMMARY | 2025-09-30 09:45 | XMS_ITS | Encounter Summary ---
Author Organization [facility] Address [address] [place] [address] Care Team Providers Care Faith Healer Name Role Phone Mckay Jordan MD Primary Care Provider [phone]- [phone] Encounter Details Date Type Department Care Team (Late Contact Info) Description 09/21/2025 Telephone [facility] RHEUMATOLOGY [address] [place] [address] Tanika Tracy, PharmD [phone] Social History Tobacco Use Types Packs/Day Years [...] Encounter - Tanika Tracy PharmD - 09/21/2025 2:25 PM EST Skyri PAP application submitted 09.21.25 documented in this encounter Plan of Treatment Upcoming Encounters Date Type Department Care Team (Late Contact Info) Description 03/10/2026 11:30 AM EDT Office Visit [facility] RHEUMATOLOGY [address] [place] [address] Oh Martinez MD 330 [address] [facility] 100 [place] [address] documented as of this encounter Visit Diagnoses Not on filedocumented in this encounter Care Teams Faith Healer Relationship Specialty Start Date End Date Mckay Jordan MD [address] [place] [address] PCP - General Family Medicine 04/13/24 documented as of this encounter
--- OUTSIDE RECORDS SUMMARY | 2025-09-30 09:45 | XMS_ITS | Encounter Summary ---
Author Organization [facility] Address [address] [place] [address] Care Team Providers Care Oil Rig Roughneck Name Role Phone Mckay Jordan MD Primary Care Provider +1- [phone] Encounter Details Date Type Department Care Team (Late st Contact Info) Description 08/04/2025 Telephone [facility] RHEUMATOLOGY [address] [address] Oh Martinez MD [address] [phone] Social History Tobacco Use Types Packs/Day Years [...] encounter Miscellaneous Notes * Telephone Encounter - Evelyn Palacios MA - 08/04/2025 9:45 AM EDT I spoke with pt. I advised her to hold the Skyrizi until she's well. I also told her if not better in a day or two, to follow up with PCP to make sure nothing else is going on. She agreed. -CHRISTOPHE Smith * Telephone Encounter - Barbara Pedraza RegSched Rep - 08/04/2025 9:10 AM EDT Patient called in stating that she has a slight cold wanted to know if it's ok to take her skyrizi or if she should wait . documented in this encounter Plan of Treatment Upcoming Encounters Date Type Department Care Team (Late st Contact Info) Description 03/10/2026 11:30 AM EDT Office Visit [facility] RHEUMATOLOGY [address] [address] Oh Martinez MD [address] [address] documented as of this encounter Visit Diagnoses Not on filedocumented in this encounter Care Teams Oil Rig Roughneck Relationship Specialty Start Date End Date Mckay Jordan MD [address] [place] [address] PCP - General Family Medicine 04/13/24 documented as of this encounter
[2025-09-30 10:04] LABS: Hematocrit 35.0 % (37.0-47.0); Hemoglobin 11.6 g/dL (12.2-16.2); Immature Granulocytes % 0.4 %; Mean Corpuscular HGB Conc 33.1 g/dL (31.8-35.4); Mean Corpuscular Hemoglobin 29.9 pg (27.0-31.2); Mean Corpuscular Volume 90.2 fl (81-99); Nucleated Red Blood Cells % 0 %; Platelet Count 260 K/mm3 (142-424); Red Blood Count 3.88 M/mm3 (4.20-5.40); Red Cell Distribution Width-SD 42.3 fL; White Blood Count 7.6 K/mm3 (4.8-10.8)
[2025-09-30 10:24] LABS: Alanine Aminotransferase 45 U/L (12-78); Alkaline Phosphatase 114 U/L (38-126); Anion Gap 12.3 mEq/L (5-15); Aspartate Amino Transferase 49 U/L (14-36); Bilirubin,Total 0.8 mg/dl (0.2-1.3); Blood Urea Nitrogen 12 mg/dl (7-17); Calcium 10.0 mg/dl (8.4-10.2); Carbon Dioxide 27 mmol/L (22.0-30.0); Chloride 102 mmol/L (98-107); Creatinine,Serum 0.90 mg/dl (0.52-1.04); Estimated Glomerular Filt Rate 61 ml/min (>60); GFR (African American) 74 ML/MIN (>60); Glucose 141 mg/dl (74-100); Potassium 4.3 mmoL/L (3.5-5.1); Sodium 137 mmol/L (136-145); Total Protein,Serum 7.1 g/dl (6.3-8.2)
[2025-09-30 10:29] LABS: C-Reactive Protein 10.4 mg/L (0-4)
[2025-09-30 10:30] LABS: Albumin Level 4.4 g/dl (3.5-5.0); Albumin/Globulin Ratio 1.6 (1.1-1.8); Globulin 2.7 g/dL (1.3-3.2)
== END 2025-09-30 23:59 | disposition home or self-care (01) ==
LOC: LAB 09:41
PROVIDERS: PCP Family Medicine; Visit Provider Internal Medicine
DX: L40.50 Arthropathic psoriasis, unspecified (principal); Z79.899 Other long term (current) drug therapy
CPT/HCPCS: 36415; 80053; 85025; 85651; 86140; 86480